=== PATIENT | female | born 1995 | race Caucasian/White ===

== ENCOUNTER 2016-09-30 19:07 | Emergency (ER) | payer OTHER ==
[2016-09-30] MEDS ORDERED: ONDANSETRON 4 MG TAB.RAPDIS PO ONE (19:16)
--- NOTE | 2016-09-30 19:16 | ER Document Report ---
ED Medical Screen (RME) - General Chief Complaint: Abdominal Pain Stated Complaint: ABDOMINAL PAIN Time seen by provider: 19:14 Mode of Arrival: Wheelchair Information source: Patient Notes: 21 yo female presents to ed for abdominal pain for 3 days. - HPI Onset: Other - 3days Onset/Duration: Gradual Quality of pain: Pressure, Sharp Severity: Moderate Pain Level: 4 Associated Symptoms: Abdominal pain, Nausea Exacerbated by: Movement Relieved by: Denies Similar symptoms previously: Yes Recently seen / treated by doctor: Yes - Related Data Smoking: Non-smoker Frequency of alcohol use: None Drug Abuse: None Allergies/Adverse Reactions: Penicillins Allergy (Verified 09/30/16 19:12) IV Contract Dye Allergy (Uncoded 09/30/16 19:12) Physical Exam - Vital signs Vitals: Temp Pulse Resp BP Pulse Ox 97.7 F 78 16 107/65 97 09/30/16 19:12 09/30/16 19:12 09/30/16 19:12 09/30/16 19:12 09/30/16 19:12 Course - Vital Signs Vital signs: Temp Pulse Resp BP Pulse Ox 97.7 F 78 16 107/65 97 09/30/16 19:12 09/30/16 19:12 09/30/16 19:12 09/30/16 19:12 09/30/16 19:12
[2016-09-30 20:01] LABS: ABSOLUTE BASOPHILS # (AUTO) 0.1 10^3/uL (0.0-0.2); ABSOLUTE EOSINOPHILS # (AUTO) 0.1 10^3/uL (0.0-0.6); ABSOLUTE LYMPHOCYTES (AUTO) 2.3 10^3/uL (0.5-4.7); ABSOLUTE MONOCYTES (AUTO) 0.5 10^3/uL (0.1-1.4); ABSOLUTE NEUT (AUTO) 4.6 10^3/uL (1.7-8.2); BASOPHILS % (AUTO) 0.8 % (0-2); EOSINOPHILS % (AUTO) 0.8 % (0-6); HEMATOCRIT 40.1 % (36.0-47.0); HEMOGLOBIN 13.7 g/dL (12.0-15.5); LYMPHOCYTES % (AUTO) 30.1 % (13-45); MEAN CORPUSCULAR HEMOGLOBIN 27.7 pg (27.0-33.4); MEAN CORPUSCULAR HGB CONC 34.2 g/dL (32.0-36.0); MEAN CORPUSCULAR VOLUME 81 fl (80-97); RED BLOOD COUNT 4.93 10^6/uL (3.72-5.28); RED CELL DISTRIBUTION WIDTH 13.9 % (11.5-14.0); SEGMENTED NEUTROPHILS % (AUTO) 61.3 % (42-78); WHITE BLOOD COUNT 7.5 10^3/uL (4.0-10.5)
[2016-09-30 20:06] LABS: APPEARANCE,URINE SLIGHTLY-CLOUDY; BILIRUBIN,URINE NEGATIVE (NEGATIVE); GLUCOSE, URINE NEGATIVE (NEGATIVE); KETONES,URINE NEGATIVE (NEGATIVE); LEUKOCYTE ESTERASE,URINE NEGATIVE (NEGATIVE); NITRITE,URINE NEGATIVE (NEGATIVE); PROTEIN,URINE NEGATIVE (NEGATIVE); URINE SPECIFIC GRAVITY 1.025; UROBILINOGEN,URINE NEGATIVE mg/dL (<2.0)
[2016-09-30 20:20] LABS: ALANINE AMINOTRANSFERASE 28 U/L (9-52); ALKALINE PHOSPHATASE 52 U/L (38-126); ANION GAP 13 (5-19); ASPARTATE AMINO TRANSFERASE 19 U/L (14-36); BILIRUBIN,TOTAL 0.8 mg/dL (0.2-1.3); BLOOD UREA NITROGEN 14 mg/dL (7-20); CALCIUM 9.8 mg/dL (8.4-10.2); CARBON DIOXIDE 27 mmol/L (22-30); CHLORIDE 104 mmol/L (98-107); CREATININE RESULT 0.81 mg/dL (0.52-1.25); GLUCOSE 94 mg/dL (75-110); LIPASE 94.5 U/L (23-300); POTASSIUM 3.8 mmol/L (3.6-5.0); SODIUM 143.8 mmol/L (137-145); TOTAL PROTEIN 7.6 g/dL (6.3-8.2)
--- NOTE | 2016-09-30 20:30 | ER Document Report ---
ED General - General Chief Complaint: Abdominal Pain Stated Complaint: ABDOMINAL PAIN Mode of Arrival: Ambulatory Information source: Patient Notes: Patient presents emergency department with complaints of abdominal pain for the past 3 days. Patient reports pain is severe in the left lower quad but has generalized pain to the right side. She reports diarrhea twice. Patient reports she was evaluated at [facility] this morning and all they did was give her tramadol. She has an appointment with her primary care provider on Monday. She reports the pain medication wasn't working so she came here. She denies fever vomiting. She reports history of appendectomy. She denies pain with void but reports some discomfort at the end of the stream. Denies vaginal discharge vaginal bleeding. TRAVEL OUTSIDE OF THE [place] IN LAST 30 DAYS: No - HPI Onset: Other - 3 days Onset/Duration: Persistent Quality of pain: Achy, Sharp Severity: Moderate Pain Level: 3 Associated symptoms: Diarrhea Exacerbated by: Denies Relieved by: Denies Similar symptoms previously: Yes Recently seen / treated by doctor: Yes - Related Data Allergies/Adverse Reactions: Penicillins Allergy (Verified 09/30/16 19:12) IV Contract Dye Allergy (Uncoded 09/30/16 19:12) Past Medical History - General Information source: Patient Last Menstrual Period: IUD - Social History Smoking Status: Never Smoker Chew tobacco use (# tins/day): No Frequency of alcohol use: None Drug Abuse: None Occupation: stay at home mom Lives with: Family Family History: Reviewed & Not Pertinent Patient has suicidal ideation: No Patient has homicidal ideation: No Psychiatric Medical History: Reports: Hx Depression Past Surgical History: Reports: Hx Appendectomy Review of Systems - Review of Systems Notes: Review HPI for review of systems., All other systems negative - Physical Exam - Vital signs Vitals: Temp Pulse Resp BP Pulse Ox 97.7 F 78 16 107/65 97 09/30/16 19:12 09/30/16 19:12 09/30/16 19:12 09/30/16 19:12 09/30/16 19:12 - Notes Notes: PHYSICAL EXAMINATION: GENERAL: Well-appearing and in no acute distress nontoxic looking HEAD: Atraumatic, normocephalic. EYES: Pupils equal round extraocular movements intact, sclera anicteric, conjunctiva are normal. ENT: nares patent, Moist mucous membranes. NECK: Normal range of motion, supple without lymphadenopathy LUNGS: CTAB and equal. No wheezes rales or rhonchi. HEART: Regular rate and rhythm without murmurs ABDOMEN: Soft, LLQ tenderness, generalize right side tenderness No guarding, no rebound BACK: Denies pain EXTREMITIES: Normal range of motion, no pitting edema. No cyanosis. NEUROLOGICAL: Cranial nerves grossly intact. Normal sensory/motor exams. PSYCH: Normal mood, normal affect. SKIN: Warm, Dry, normal turgor, no rashes or lesions noted Course - Re-evaluation Re-evalutation: 09/30/16 21:56 Received faxed record from [facility]. Patient had full workup this morning including a right upper quadrant abdominal ultrasound. Lab and US were within normal limits at [facility]. Labs and ultrasound done today here are normal. She looks good, asking for something to eat. Patient will be referred back to primary care provider to follow up on Monday. The patient presents with abdominal pain without signs of peritonitis or other life threatening or serious etiology. The patient appears stable for discharge and has been instructed to return immediately if the symptoms worsen in any way or in 8-12 hours if not improved for reevaluation. The patient has been instructed to return if the symptoms worsen or change in any way. - Vital Signs Vital signs: Temp Pulse Resp BP Pulse Ox 98.0 F 72 14 100/60 99 09/30/16 22:31 09/30/16 22:31 09/30/16 22:31 09/30/16 22:31 09/30/16 22:31 - Laboratory Result Diagrams: 09/30/16 19:46 09/30/16 19:46 - Diagnostic Test Radiology reviewed: Image reviewed, Reports reviewed Discharge - Discharge Clinical Impression: Abdominal pain Qualifiers: Abdominal location: generalized Qualified Code(s): R10.84 - Generalized abdominal pain Condition: Stable Disposition: HOME, SELF-CARE Instructions: Abdominal Pain ([facility]) Additional Instructions: *You have been evaluated for abdominal pain *Your labs and ultrasound were all normal *Take your medication for pain as prescribed *Follow up with a primary care provider on Monday as scheduled *Return to ED for worsening condition, changes, needs *Return to ED if not better in 24 hours
[2016-09-30 22:33] VITALS: BP 100/60
== END 2016-09-30 22:33 | disposition home or self-care (01) ==
LOC: ER 19:07
DX: R10.84 Generalized abdominal pain (principal); R19.7 Diarrhea, unspecified; Z90.49 Acquired absence of other specified parts of digestive tract; Z88.0 Allergy status to penicillin; Z91.041 Radiographic dye allergy status; Z97.5 Presence of (intrauterine) contraceptive device
CPT/HCPCS: 99284; 36415; 83690; 84703; 85025; 80053; 81001; 76830; 93976; S0119

== ENCOUNTER 2016-10-03 13:20 | Emergency (ER) | payer OTHER ==
--- NOTE | 2016-10-03 13:30 | ER Document Report ---
ED Medical Screen (RME) - General Stated Complaint: ABDOMINAL PAIN,NAUSEA Time seen by provider: 13:29 Mode of Arrival: Ambulatory Information source: Patient Notes: 21-year-old female returns to the emergency room with persistent left pelvic pain that radiates to the right side and up to her right upper quadrant. She had her appendix removed in May. She has no vaginal discharge with an odor. No urinary symptoms. She was seen in the emergency department recently and had diagnostic testing done. This pain has been intermittent for 9 months started after her child was born. No . Does have nausea today. TRAVEL OUTSIDE OF THE [place] IN LAST 30 DAYS: No - Related Data Allergies/Adverse Reactions: Penicillins Allergy (Verified 10/03/16 13:27) IV Contract Dye Allergy (Uncoded 10/03/16 13:27) Past Medical History Psychiatric Medical History: Reports: Hx Depression Past Surgical History: Reports: Hx Appendectomy - Immunizations Hx Diphtheria, Pertussis, Tetanus Vaccination: Yes Physical Exam - Vital signs Vitals: Temp Pulse Resp BP Pulse Ox 98.6 F 97 16 111/68 95 10/03/16 13:25 10/03/16 13:25 10/03/16 13:25 10/03/16 13:25 10/03/16 13:25 Course - Vital Signs Vital signs: Temp Pulse Resp BP Pulse Ox 98.6 F 97 16 111/68 95 10/03/16 13:25 10/03/16 13:25 10/03/16 13:25 10/03/16 13:25 10/03/16 13:25
[2016-10-03 14:34] LABS: ABSOLUTE LYMPHOCYTES (AUTO) 1.8 10^3/uL (0.5-4.7); ABSOLUTE MONOCYTES (AUTO) 0.4 10^3/uL (0.1-1.4); BASOPHILS % (AUTO) 0.5 % (0-2); EOSINOPHILS % (AUTO) 0.5 % (0-6); HEMATOCRIT 38.2 % (36.0-47.0); HEMOGLOBIN 13.2 g/dL (12.0-15.5); HGB HCT DIFFERENCE 1.4; LYMPHOCYTES % (AUTO) 24.7 % (13-45); MEAN CORPUSCULAR HEMOGLOBIN 27.6 pg (27.0-33.4); MEAN CORPUSCULAR HGB CONC 34.7 g/dL (32.0-36.0); MEAN CORPUSCULAR VOLUME 80 fl (80-97); MONOCYTES % (AUTO) 5.4 % (3-13); RED CELL DISTRIBUTION WIDTH 13.9 % (11.5-14.0); SEGMENTED NEUTROPHILS % (AUTO) 68.9 % (42-78); WHITE BLOOD COUNT 7.2 10^3/uL (4.0-10.5)
[2016-10-03 14:42] LABS: APPEARANCE,URINE SLIGHTLY-CLOUDY; BILIRUBIN,URINE NEGATIVE (NEGATIVE); GLUCOSE, URINE NEGATIVE (NEGATIVE); KETONES,URINE NEGATIVE (NEGATIVE); LEUKOCYTE ESTERASE,URINE NEGATIVE (NEGATIVE); NITRITE,URINE NEGATIVE (NEGATIVE); PROTEIN,URINE 30 mg/dL (NEGATIVE); URINE SPECIFIC GRAVITY 1.031; UROBILINOGEN,URINE NEGATIVE mg/dL (<2.0)
[2016-10-03 14:45] LABS: ALANINE AMINOTRANSFERASE 22 U/L (9-52); ALBUMIN 4.6 g/dL (3.5-5.0); ALKALINE PHOSPHATASE 54 U/L (38-126); ANION GAP 11 (5-19); ASPARTATE AMINO TRANSFERASE 19 U/L (14-36); BILIRUBIN,TOTAL 0.7 mg/dL (0.2-1.3); BLOOD UREA NITROGEN 18 mg/dL (7-20); CALCIUM 9.9 mg/dL (8.4-10.2); CARBON DIOXIDE 28 mmol/L (22-30); CHLORIDE 103 mmol/L (98-107); CREATININE RESULT 0.89 mg/dL (0.52-1.25); GLUCOSE 81 mg/dL (75-110); LIPASE 122.1 U/L (23-300); POTASSIUM 4.2 mmol/L (3.6-5.0); TOTAL PROTEIN 7.1 g/dL (6.3-8.2)
--- NOTE | 2016-10-03 15:58 | ER Document Report ---
ED General - General Chief Complaint: Abdominal Pain Stated Complaint: ABDOMINAL PAIN,NAUSEA Mode of Arrival: Ambulatory TRAVEL OUTSIDE OF THE [place] IN LAST 30 DAYS: No - HPI Patient complains to provider of: abdominal pain Notes: Patient states abdominal pain ongoing for months states is been intermittent states last time she had abdominal pain at this was back in May when she had her appendix taken out. Patient states pain has exacerbated over the last 5 days. Patient states pain started after having her first child. Patient states nausea vomiting diarrhea. Denies any sick contacts measures travel denies any antibiotics. Patient was recently seen here in ER and laboratory pelvic ultrasound performed which was otherwise negative. - Related Data Allergies/Adverse Reactions: Penicillins Allergy (Verified 10/03/16 13:27) IV Contract Dye Allergy (Uncoded 10/03/16 13:27) Past Medical History - General Information source: Patient - Social History Smoking Status: Never Smoker Chew tobacco use (# tins/day): No Frequency of alcohol use: Occasional Family History: Reviewed & Not Pertinent Patient has suicidal ideation: No Patient has homicidal ideation: No Psychiatric Medical History: Reports: Hx Bipolar Disorder, Hx Depression Past Surgical History: Reports: Hx Appendectomy - Immunizations Hx Diphtheria, Pertussis, Tetanus Vaccination: Yes Review of Systems - Review of Systems Constitutional: No symptoms reported EENT: No symptoms reported Cardiovascular: No symptoms reported Respiratory: No symptoms reported Gastrointestinal: Abdominal pain, Diarrhea, Nausea, Vomiting Genitourinary: No symptoms reported Female Genitourinary: No symptoms reported Musculoskeletal: No symptoms reported Skin: No symptoms reported Hematologic/Lymphatic: No symptoms reported Neurological/Psychological: No symptoms reported -: Yes All other systems reviewed and negative Physical Exam - Vital signs Vitals: Temp Pulse Resp BP Pulse Ox 98.6 F 97 16 111/68 95 10/03/16 13:25 10/03/16 13:25 10/03/16 13:25 10/03/16 13:25 10/03/16 13:25 Interpretation: Normal - General General appearance: Appears well, Alert - HEENT Head: Normocephalic, Atraumatic Eyes: Normal Pupils: PERRL - Respiratory Respiratory status: No respiratory distress Chest status: Nontender Breath sounds: Normal Chest palpation: Normal - Cardiovascular Rhythm: Regular Heart sounds: Normal auscultation Murmur: No - Abdominal Inspection: Normal Distension: No distension Bowel sounds: Normal Tenderness: Tender - Diffuse tenderness generalized no guarding or rebound. No : McBurney's point, Marinelli's sign, Guarding, Rebound Organomegaly: No organomegaly - Back Back: Normal, Nontender - Extremities General upper extremity: Normal inspection, Nontender, Normal color, Normal ROM , Normal temperature General lower extremity: Normal inspection, Nontender, Normal color, Normal ROM , Normal temperature, Normal weight bearing. No: Tamara's sign - Neurological Neuro grossly intact: Yes Cognition: Normal Orientation: AAOx4 Amira Coma Scale Eye Opening: Spontaneous [place] Coma Scale Verbal: Oriented [place] Coma Scale Motor: Obeys Commands [place] Coma Scale Total: 15 Speech: Normal Motor strength normal: LUE, RUE, LLE, RLE Sensory: Normal - Psychological Associated symptoms: Normal affect, Normal mood - Skin Skin Temperature: Warm Skin Moisture: Dry Skin Color: Normal Course - Re-evaluation Re-evalutation: 10/03/16 20:05 Patient's lab work is unremarkable. Diffuse mild tenderness on patient's abdominal examination upon reevaluation patient sitting up playing with her child. At this time abdominal examination reveals a surgically pathology or concern. Laboratory be normal no fevers more likely patient has possibly gastroenteritis or crepitations from her surgeries. Recommended patient follow- up with her primary care physician will start on Bentyl and nausea medication. Patient discharged home - Vital Signs Vital signs: Temp Pulse Resp BP Pulse Ox 98.5 F 88 14 102/66 95 10/03/16 16:14 10/03/16 16:14 10/03/16 16:14 10/03/16 16:14 10/03/16 16:14 - Laboratory Result Diagrams: 10/03/16 14:10 10/03/16 14:10 Laboratory results interpreted by me: 10/03/16 14:10 Urine Protein 30 H Discharge - Discharge Clinical Impression: Nausea vomiting and diarrhea Abdominal pain Qualifiers: Abdominal location: lower abdomen, unspecified Qualified Code(s): R10.30 - Lower abdominal pain, unspecified Condition: Good Disposition: HOME, SELF-CARE Instructions: Abdominal Pain ([facility]), Gastroenterology Additional Instructions: Follow-up with your primary care physician. At this time your labwork shows no critical etiology for your abdominal pain. Examination is also consistent with a nonsurgical pathology of your abdominal pain. Take medication as prescribed Prescriptions: Ondansetron [Zofran Odt 4 mg Tablet] 4 mg PO Q4HP PRN #30 tab.rapdis PRN Reason: Dicyclomine HCl [Bentyl 20 mg Tablet] 20 mg PO QID #20 tablet
[2016-10-03 16:39] VITALS: BP 102/66
== END 2016-10-03 16:15 | disposition home or self-care (01) ==
LOC: ER 13:20
DX: R11.2 Nausea with vomiting, unspecified (principal); R19.7 Diarrhea, unspecified; R10.30 Lower abdominal pain, unspecified; R10.2 Pelvic and perineal pain; R10.11 Right upper quadrant pain
CPT/HCPCS: 36415; 80053; 81001; 83690; 84703; 85025; 87086; 99284

== ENCOUNTER 2017-12-12 04:19 | Emergency (ER) | payer OTHER ==
[2017-12-12] MEDS ORDERED: ONDANSETRON HCL INJ/PF 4 MG/2 ML SDV IV ONE (04:48)
[2017-12-12] MEDS ORDERED: NORMAL SALINE 1000 ML 1,000 ML IV ONE (04:48)
[2017-12-12] MEDS ORDERED: MORPHINE SULFATE 10 MG/ML INJ IV ONE (05:11)
[2017-12-12] MEDS ORDERED: FAMOTIDINE INJ/PF 20 MG/2 ML SDV IV ONE (05:11)
--- NOTE | 2017-12-12 05:14 | ER Document Report ---
ED General - General Chief Complaint: Nausea/Vomiting/Diarrhea Stated Complaint: ABDOMINAL PAIN Time Seen by Provider: 12/12/17 05:02 Mode of Arrival: Ambulatory Information source: Patient Notes: 22-year-old female with a history of depression, GERD, chronic back pain, IBS, hiatal hernia, chronic abdominal pain presents with complaint of worsening abdominal pain that started 2 hours prior to arrival. Patient's pain is located in the epigastric and right upper quadrant. She describes it as a throbbing, burning, constant pain that radiates to her back. Patient states that she has had abdominal pain for several months but that it is greatly worsened today. Patient has had 7 episodes of vomiting in the last 2 hours. She has also had multiple episodes of watery diarrhea. She also states that she has had diarrhea for months. She denies any sick contacts, recent travel, recent antibiotic use. She denies any fever, chest pain, shortness of breath, dysuria. Last menstrual period was 2 weeks prior to this visit. TRAVEL OUTSIDE OF THE [place] IN LAST 30 DAYS: No - HPI Onset: Other - Chronic abdominal pain, chronic nausea, chronic diarrhea with reported worsening tonight. Onset/Duration: Gradual Quality of pain: Burning, Throbbing Severity: Mild Pain Level: 1 Associated symptoms: Diarrhea, Nausea, Vomiting. denies: Chest pain, Chills, Fever, Headache, Weakness Exacerbated by: Denies Relieved by: Denies Similar symptoms previously: Yes Recently seen / treated by doctor: No - Related Data Allergies/Adverse Reactions: Penicillins Allergy (Verified 10/03/16 13:27) IV Contract Dye Allergy (Uncoded 10/03/16 13:27) Past Medical History - General Information source: Patient - Social History Smoking Status: Former Smoker Chew tobacco use (# tins/day): No Frequency of alcohol use: None Drug Abuse: None Lives with: Spouse/Significant other Family History: Reviewed & Not Pertinent Patient has suicidal ideation: No Patient has homicidal ideation: No - Medical History Medical History: Other - IBS, GERD, hiatal hernia, chronic back pain. Renal/ Medical History: Denies: Hx Peritoneal Dialysis GI Medical History: Reports: Hx Gastroesophageal Reflux Disease Psychiatric Medical History: Reports: Hx Bipolar Disorder, Hx Depression Past Surgical History: Reports: Hx Appendectomy - Immunizations Hx Diphtheria, Pertussis, Tetanus Vaccination: Yes Review of Systems - Review of Systems Constitutional: denies: Chills, Fever EENT: No symptoms reported Cardiovascular: No symptoms reported Respiratory: No symptoms reported Gastrointestinal: Abdominal pain, Diarrhea, Nausea, Vomiting Genitourinary: denies: Dysuria, Hematuria Musculoskeletal: No symptoms reported Skin: No symptoms reported Hematologic/Lymphatic: No symptoms reported Neurological/Psychological: No symptoms reported Physical Exam - Vital signs Vitals: Temp Pulse Resp BP Pulse Ox 98.0 F 99 18 114/69 99 12/12/17 04:23 12/12/17 04:23 12/12/17 04:23 12/12/17 04:23 12/12/17 04:23 Interpretation: Normal. No: Hypotensive, Tachycardic, Febrile - General General appearance: Appears well, Alert In distress: Mild - HEENT Head: Normocephalic, Atraumatic Eyes: Normal Extraocular movements intact: Yes Pupils: PERRL Mucous membranes: Normal Pharynx: Normal Neck: Normal - Respiratory Respiratory status: No respiratory distress. No: Respiratory distress, Pursed lip breathing, Retractions Chest status: Nontender Breath sounds: Normal Chest palpation: Normal - Abdominal Inspection: Normal Distension: No distension Bowel sounds: Normal Tenderness: Tender, Marinelli's sign. No: Guarding, Rebound Organomegaly: No organomegaly - Back Back: Normal, Nontender - Extremities General upper extremity: Normal inspection, Nontender, Normal color, Normal ROM , Normal temperature. No: Edema General lower extremity: Normal inspection, Nontender, Normal color, Normal ROM , Normal temperature, Normal weight bearing. No: Edema, Tamara's sign - Neurological Neuro grossly intact: Yes Cognition: Normal Orientation: AAOx4 Amira Coma Scale Eye Opening: Spontaneous [place] Coma Scale Verbal: Oriented Amira Coma Scale Motor: Obeys Commands [place] Coma Scale Total: 15 Speech: Normal Motor strength normal: LUE, RUE, LLE, RLE Sensory: Normal Course - Re-evaluation Re-evalutation: 12/12/17 05:41 22-year-old female with a history of IBS, GERD, hiatal hernia, chronic abdominal pain and diarrhea presents with complaint of nausea, vomiting, diarrhea and abdominal pain that worsened 2 hours prior to arrival. Patient states that she has had 7 episodes of vomiting and diarrhea since 3 AM. Upon arrival vitals reviewed and within normal limits. Patient does not appear toxic or dehydrated. She does appear to be in mild pain. Previous medical records and nursing notes were reviewed. Patient received IV fluids, Zofran and Dilaudid during her ED course. Ultrasound of the right upper quadrant is pending. - Vital Signs Vital signs: Temp Pulse Resp BP Pulse Ox 98.0 F 99 18 114/69 99 12/12/17 04:23 12/12/17 04:23 12/12/17 04:23 12/12/17 04:23 12/12/17 04:23 - Laboratory Result Diagrams: 12/12/17 05:00 12/12/17 05:00 Laboratory results interpreted by me: 12/12/17 12/12/17 05:00 05:00 WBC 20.9 H RBC 5.49 H Seg Neuts % (Manual) 86 H Lymphocytes % (Manual) 9 L Abs Neuts (Manual) 18.0 H Chloride 109 H Carbon Dioxide 19 L Discharge - Discharge Clinical Impression: Epigastric abdominal pain Leukocytosis Qualifiers: Leukocytosis type: unspecified Qualified Code(s): D72.829 - Elevated white blood cell count, unspecified Nausea & vomiting Qualifiers: Vomiting type: unspecified Vomiting Intractability: non-intractable Qualified Code(s): R11.2 - Nausea with vomiting, unspecified Condition: Good Disposition: HOME, SELF-CARE Instructions: Viral Syndrome ([facility]), Vomiting ([facility]), Diarrhea, Nonspecific ([facility]) , Abdominal Pain ([facility]) Prescriptions: Hydrocodone/Acetaminophen [[place] 5-325 mg Tablet] 1 tab PO Q6H PRN #8 tablet PRN Reason: For Pain Scale 2-4 Ondansetron [Zofran Odt 4 mg Tablet] 1 - 2 tab PO Q4H PRN #15 tab.rapdis PRN Reason: For Nausea/Vomiting
[2017-12-12 05:17] LABS: HEMATOCRIT 43.7 % (36.0-47.0); HEMOGLOBIN 14.9 g/dL (12.0-15.5); MEAN CORPUSCULAR HEMOGLOBIN 27.1 pg (27.0-33.4); MEAN CORPUSCULAR VOLUME 80 fl (80-97); RED BLOOD COUNT 5.49 10^6/uL (3.72-5.28); RED CELL DISTRIBUTION WIDTH 13.6 % (11.5-14.0); WHITE BLOOD COUNT 20.9 10^3/uL (4.0-10.5)
[2017-12-12 05:29] LABS: BLOOD UREA NITROGEN 12 mg/dL (7-20); CALCIUM 10.2 mg/dL (8.4-10.2); GLUCOSE 100 mg/dL (75-110)
[2017-12-12 05:30] LABS: ALANINE AMINOTRANSFERASE 30 U/L (9-52); ALBUMIN 4.7 g/dL (3.5-5.0); ALKALINE PHOSPHATASE 55 U/L (38-126); ANION GAP 14 (5-19); ASPARTATE AMINO TRANSFERASE 19 U/L (14-36); BILIRUBIN,DIRECT 0.3 mg/dL (0.0-0.4); BILIRUBIN,TOTAL 0.4 mg/dL (0.2-1.3); CARBON DIOXIDE 19 mmol/L (22-30); CHLORIDE 109 mmol/L (98-107); LIPASE 173.9 U/L (23-300); TOTAL PROTEIN 7.9 g/dL (6.3-8.2)
[2017-12-12] MEDS ORDERED: HYDROMORPHONE HCL INJ/PF 2 MG/ML AMPULE IV ONE (05:37)
[2017-12-12 05:49] LABS: ABSOLUTE LYMPHOCYTES# (MANUAL) 1.9 10^3/uL (0.5-4.7); ABSOLUTE MONOCYTES # (MANUAL) 0.8 10^3/uL (0.1-1.4); BASOPHILS % (MANUAL) 0 % (0-2); EOSINOPHILS % (MANUAL) 1 % (0-6); LYMPHOCYTES % (MANUAL) 9 % (13-45); MONOCYTES % (MANUAL) 4 % (3-13); SEGMENTED NEUTROPHILS % (MAN) 86 % (42-78); TOTAL CELLS COUNTED 100
[2017-12-12 05:52] LABS: OVALOCYTES 1+; PLATELET CLUMPS PRESENT; PLATELET COMMENT ADEQUATE; PLATELET COUNT 401 10^3/uL (150-450); POIKILOCYTOSIS SLIGHT; TOXIC GRANULATION SLIGHT; TOXIC VACUOLATION PRESENT
--- NOTE | 2017-12-12 06:30 | RADIOLOGY REPORT (SQ) ---
EXAM DESCRIPTION: U/S ABDOMEN LIMITED W/O DOP CLINICAL HISTORY: ruq ab pain COMPARISON: None. TECHNIQUE: Real-time sonographic images of the right upper abdomen were obtained using a curved multihertz transducer. FINDINGS: Pancreas: The visualized portions of the pancreas are unremarkable. Vascular: The visualized portions of the aorta and IVC are unremarkable. Liver: The liver has normal contour and echogenicity. Hepatopedal flow in the portal vein. The common bile duct measures 0.3 cm. Gallbladder: The gallbladder has a normal appearance. No gallstones identified. No wall thickening or pericholecystic fluid. Right Kidney: The right kidney measures 10.0 cm in length. No hydronephrosis, solid renal mass, or shadowing calculi. IMPRESSION: 1. No acute abnormality of the right upper abdomen. Specifically, no gallstones identified.
[2017-12-12 06:55] VITALS: BP 109/69
== END 2017-12-12 06:45 | disposition home or self-care (01) ==
LOC: ER 04:19
DX: R10.13 Epigastric pain (principal); R10.11 Right upper quadrant pain; R11.2 Nausea with vomiting, unspecified; R19.7 Diarrhea, unspecified; D72.829 Elevated white blood cell count, unspecified; Z87.19 Personal history of other diseases of the digestive system; Z88.0 Allergy status to penicillin; Z91.041 Radiographic dye allergy status; Z87.891 Personal history of nicotine dependence; Z90.49 Acquired absence of other specified parts of digestive tract
CPT/HCPCS: 99284; 96361; 96374; 96375; 36415; 83690; 85025; 80053; 76705; J1170; J2405; J7030; S0028

== ENCOUNTER 2018-02-28 18:44 | Emergency (ER) | payer OTHER ==
[2018-02-28] MEDS ORDERED: DIPH/PERTUSS(ACELL)/TETANUS VAC/PF 0.5 ML SYR (>=10YO) IM ONE (19:33)
--- NOTE | 2018-02-28 19:42 | ER Document Report ---
ED Animal Bite - General Chief Complaint: Dog Bite Stated Complaint: POSSIBLE DOG BITE Time Seen by Provider: 02/28/18 19:33 Mode of Arrival: Ambulatory Information source: Patient TRAVEL OUTSIDE OF THE [place] IN LAST 30 DAYS: No - HPI Patient complains to provider of: Left wrist pain Severity of injury: Bitten Onset: Just prior to arrival Quality of pain: Achy, Sharp Pain Level: 3 Severity: Moderate Context of attack: Animals fighting Summary of what happened: Patient's Gregory Galarzapherd and her foster dog were fighting and she tried to break it up and got bitten the left wrist. Immunizations are up-to-date on both animals. Patient states that there was no true puncture of her skin, just pain and erythemic areas from the bite. Type of animal: Dog Appearance of animal: Appeared well Breed and color: Gregory Galarzapherd Animal's immunizations: UTD Notes: Patient has left wrist pain status post injury as noted above. The pain does not radiate. Patient states that her pain has improved since arrival. She has no associated numbness or tingling. No active bleeding. Unknown last tetanus. Denies any headache, fever, URI, sore throat, chest pain, palpitations, syncope, cough, shortness of breath, wheeze, dyspnea, abdominal pain, nausea/ vomiting/diarrhea, muscle paralysis/weakness, or rash. - Related Data Allergies/Adverse Reactions: Penicillins Allergy (Verified 02/28/18 18:46) IV Contract Dye Allergy (Uncoded 02/28/18 18:46) Past Medical History - Social History Smoking Status: Never Smoker Chew tobacco use (# tins/day): No Frequency of alcohol use: None Family History: Reviewed & Not Pertinent Patient has suicidal ideation: No Patient has homicidal ideation: No Renal/ Medical History: Denies: Hx Peritoneal Dialysis GI Medical History: Reports: Hx Gastroesophageal Reflux Disease Psychiatric Medical History: Reports: Hx Bipolar Disorder, Hx Depression Past Surgical History: Reports: Hx Appendectomy - Immunizations Hx Diphtheria, Pertussis, Tetanus Vaccination: Yes Review of Systems - Review of Systems -: Yes All other systems reviewed and negative Physical Exam - Vital signs Vitals: Temp Pulse Resp BP Pulse Ox 98.8 F 88 16 119/75 98 02/28/18 18:52 02/28/18 18:52 02/28/18 18:52 02/28/18 18:52 02/28/18 18:52 - Notes Notes: PHYSICAL EXAMINATION: GENERAL: Well-appearing, well-nourished and in no acute distress. LUNGS: Breath sounds clear to auscultation bilaterally and equal. No wheezes rales or rhonchi. HEART: Regular rate and rhythm without murmurs, rubs, gallops. Musculoskeletal: Lt wrist: There are abrasions noted with mild erythema. There is a single 2mm break in the skin, presumably from a tooth, w/o active bleeding to the dorsal wrist. FROM to passive/active. Strength 5+/5. N/V intact distal. + mild tenderness to the distal wrist. No scaphoid tenderness. Extremities: No cyanosis, clubbing, or edema b/l. Peripheral pulses 2+. Capillary refill less than 3 seconds. NEUROLOGICAL: Normal speech, normal gait. Normal sensory, motor exams PSYCH: Normal mood, normal affect. SKIN: Warm, Dry, normal turgor, no rashes or lesions noted. Course - Re-evaluation Re-evalutation: 02/28/18 19:39 XR and Tdap ordered 02/28/18 20:10 Patient is an afebrile, well-hydrated, 22-year-old female who presents to the ED with a dog bite/abrasion to the left wrist. Vitals are acceptable. PE is otherwise unremarkable for any neurovascular compromise, obvious tendon/ ligament rupture, obvious fracture/dislocation, septic joint, compartment syndrome. XR unremarkable for acute pathology. Wound was thoroughly irrigated and cleansed. Wound dressing was placed. Tetanus was given IM today. Patient has an allergy to penicillins. According to up-to-date we will cover her with Bactrim as well as clindamycin. No other labs or imaging warranted at this time based on H&P. Conservative measures otherwise for symptoms. Recheck with your PCM in 3-5 days. Consider consult orthopedic. Return to the ED with any worsening/concerning symptoms otherwise as reviewed discharge. Patient is in agreement. - Vital Signs Vital signs: Temp Pulse Resp BP Pulse Ox 98.8 F 88 16 119/75 98 02/28/18 18:52 02/28/18 18:52 02/28/18 18:52 02/28/18 18:52 02/28/18 18:52 Discharge - Discharge Clinical Impression: Dog bite Qualifiers: Encounter type: initial encounter Qualified Code(s): W54.0XXA - Bitten by dog, initial encounter Condition: Stable Disposition: HOME, SELF-CARE Instructions: Animal Bites ([facility]) Additional Instructions: Keep the skin clean Wash with soap and water Tylenol/ibuprofen if needed Triple antibiotic ointment daily Take medication as directed Monitor for any worsening symptoms Recheck with your PCM in 3-5 days Consider consult with Orthopedics if needed Return to the ED with any worsening symptoms and/or development of fever, headache, chest pain, palpitations, syncope, shortness of breath, trouble breathing, abdominal pain, n/v/d, abscess, purulent discharge, red streaks, worsening swelling, or other worsening symptoms that are concerning to you. Prescriptions: Clindamycin HCl [Cleocin 300 mg Capsule] 300 mg PO BID #14 capsule Sulfamethoxazole/Trimethoprim [Bactrim Ds Tablet] 1 each PO BID #14 tablet Referrals: [facility] [Provider Group] - Follow up as needed
--- NOTE | 2018-02-28 20:00 | RADIOLOGY REPORT (SQ) ---
EXAM DESCRIPTION: WRIST LEFT 3 VIEWS COMPLETED DATE/TIME: 02/28/2018 7:48 pm REASON FOR STUDY: dog bite COMPARISON: None. NUMBER OF VIEWS: Three views. TECHNIQUE: AP, lateral, and oblique radiographic images acquired of the left wrist. LIMITATIONS: None. FINDINGS: MINERALIZATION: Normal. BONES: No acute fracture or dislocation. No worrisome bone lesions. Normal alignment. SOFT TISSUES: Mild soft tissue swelling. No foreign body. OTHER: No other significant finding. IMPRESSION: No fracture. TECHNICAL DOCUMENTATION: JOB ID: [id number] [id number] [employer]- All Rights Reserved Reading location - IP/workstation name: [email or web address]
[2018-02-28 20:59] VITALS: BP 118/75
== END 2018-02-28 20:55 | disposition home or self-care (01) ==
LOC: ER 18:44
DX: S60.872A Other superficial bite of left wrist, initial encounter (principal); M25.532 Pain in left wrist; W54.0XXA Bitten by dog, initial encounter; Y92.009 Unspecified place in unspecified non-institutional (private) residence as the place of occurrence of the external cause; Z88.0 Allergy status to penicillin
CPT/HCPCS: 90471; 90715; 99283

== ENCOUNTER 2018-04-16 13:19 | Emergency (ER) | payer OTHER ==
[2018-04-16 14:19] LABS: AMORPHOUS SEDIMENT,URINE TRACE /HPF; APPEARANCE,URINE CLOUDY; BILIRUBIN,URINE NEGATIVE (NEGATIVE); COLOR,URINE YELLOW; GLUCOSE, URINE NEGATIVE (NEGATIVE); KETONES,URINE NEGATIVE (NEGATIVE); LEUKOCYTE ESTERASE,URINE TRACE (NEGATIVE); NITRITE,URINE NEGATIVE (NEGATIVE); PROTEIN,URINE NEGATIVE (NEGATIVE); URINE SPECIFIC GRAVITY 1.019
[2018-04-16 15:32] LABS: ABSOLUTE EOSINOPHILS # (AUTO) 0.1 10^3/uL (0.0-0.6); ABSOLUTE LYMPHOCYTES (AUTO) 1.5 10^3/uL (0.5-4.7); ABSOLUTE MONOCYTES (AUTO) 0.5 10^3/uL (0.1-1.4); ABSOLUTE NEUT (AUTO) 5.6 10^3/uL (1.7-8.2); BASOPHILS % (AUTO) 0.5 % (0-2); EOSINOPHILS % (AUTO) 0.8 % (0-6); HEMATOCRIT 42.2 % (36.0-47.0); HEMOGLOBIN 14.4 g/dL (12.0-15.5); LYMPHOCYTES % (AUTO) 19.3 % (13-45); MEAN CORPUSCULAR HGB CONC 34.1 g/dL (32.0-36.0); MEAN CORPUSCULAR VOLUME 82 fl (80-97); MONOCYTES % (AUTO) 6.9 % (3-13); PLATELET COUNT 297 10^3/uL (150-450); RED BLOOD COUNT 5.14 10^6/uL (3.72-5.28); RED CELL DISTRIBUTION WIDTH 14.3 % (11.5-14.0); SEGMENTED NEUTROPHILS % (AUTO) 72.5 % (42-78); TOTAL CELLS COUNTED % (AUTO) 100 %; WHITE BLOOD COUNT 7.7 10^3/uL (4.0-10.5)
[2018-04-16 16:02] LABS: ALANINE AMINOTRANSFERASE 31 U/L (9-52); ALBUMIN 4.4 g/dL (3.5-5.0); ALKALINE PHOSPHATASE 48 U/L (38-126); ANION GAP 11 (5-19); ASPARTATE AMINO TRANSFERASE 25 U/L (14-36); BILIRUBIN,DIRECT 0.2 mg/dL (0.0-0.4); BILIRUBIN,TOTAL 0.4 mg/dL (0.2-1.3); BLOOD UREA NITROGEN 15 mg/dL (7-20); CALCIUM 9.3 mg/dL (8.4-10.2); CARBON DIOXIDE 28 mmol/L (22-30); CHLORIDE 104 mmol/L (98-107); GLUCOSE 99 mg/dL (75-110); LIPASE 110.9 U/L (23-300); POTASSIUM 3.9 mmol/L (3.6-5.0); SODIUM 143.1 mmol/L (137-145); TOTAL PROTEIN 7.6 g/dL (6.3-8.2)
--- NOTE | 2018-04-16 17:00 | RADIOLOGY REPORT (SQ) ---
EXAM DESCRIPTION: U/S ABDOMEN LIMITED W/O DOP COMPLETED DATE/TIME: 04/16/2018 4:47 pm REASON FOR STUDY: ruq pain COMPARISON: 12/12/2017. TECHNIQUE: Dynamic and static grayscale images acquired of the abdomen and recorded on PACS. Additio nal selected color Doppler and spectral images recorded. LIMITATIONS: None. FINDINGS: PANCREAS: No masses. Visualized pancreatic duct normal caliber. LIVER: No masses. Echotexture normal. LIVER VASCULATURE: Normal directional flow of the main portal vein and hepatic veins. GALLBLADDER: No stones. Normal wall thickness. No pericholecystic fluid. ULTRASOUND-DETECTED LI'S SIGN: Negative. INTRAHEPATIC DUCTS AND COMMON DUCT: CBD and intrahepatic ducts normal caliber. No filling defects. INFERIOR VENA CAVA: Normal flow. AORTA: No aneurysm. RIGHT KIDNEY: Normal size. Normal echogenicity. No solid or suspicious masses. No hydronephrosis. No calcifications. PERITONEAL AND RIGHT PLEURAL SPACE: No ascites or effusions. OTHER: No other significant findings. IMPRESSION: NORMAL RIGHT UPPER QUADRANT ULTRASOUND. TECHNICAL DOCUMENTATION: JOB ID: [id number] [email or web address] All Rights Reserved Reading location - IP/workstation name: [email or web address]
[2018-04-16] MEDS ORDERED: DICYCLOMINE HCL 20 MG TABLET PO ONE (17:18)
--- NOTE | 2018-04-16 17:18 | ER Document Report ---
ED General - General Chief Complaint: Abdominal Pain Stated Complaint: ABDOMINAL PAIN/VOMITING Time Seen by Provider: 04/16/18 14:49 TRAVEL OUTSIDE OF THE [place] IN LAST 30 DAYS: No - HPI Patient complains to provider of: Abdominal pain vomiting Notes: Patient coming in for evaluation of abdominal pain since epigastric with vomiting. PatientStates has a history of appendectomy patient denies any fevers chills nausea vomiting diarrhea not associated with any food. Patient is already on omeprazole for underlying gastritis. - Related Data Allergies/Adverse Reactions: Penicillins Allergy (Verified 04/16/18 14:41) IV Contract Dye Allergy (Uncoded 04/16/18 14:41) Past Medical History - Social History Smoking Status: Never Smoker Chew tobacco use (# tins/day): No Frequency of alcohol use: Rare Drug Abuse: None Family History: Reviewed & Not Pertinent Patient has suicidal ideation: No Patient has homicidal ideation: No Renal/ Medical History: Denies: Hx Peritoneal Dialysis GI Medical History: Reports: Hx Gastroesophageal Reflux Disease Psychiatric Medical History: Reports: Hx Depression Comment Only: Hx Bipolar Disorder - borderline personality disorder Past Surgical History: Reports: Hx Appendectomy, Hx Tonsillectomy - Immunizations Hx Diphtheria, Pertussis, Tetanus Vaccination: Yes Review of Systems - Review of Systems Constitutional: No symptoms reported EENT: No symptoms reported Cardiovascular: No symptoms reported Respiratory: No symptoms reported Gastrointestinal: Abdominal pain, Nausea, Vomiting Genitourinary: No symptoms reported Female Genitourinary: No symptoms reported Musculoskeletal: No symptoms reported Skin: No symptoms reported Hematologic/Lymphatic: No symptoms reported Neurological/Psychological: No symptoms reported -: Yes All other systems reviewed and negative Physical Exam - Vital signs Vitals: Temp Pulse Resp BP Pulse Ox 97.9 F 97 18 112/68 99 04/16/18 13:32 04/16/18 13:32 04/16/18 13:32 04/16/18 13:32 04/16/18 13:32 Interpretation: Normal - General General appearance: Appears well, Alert - HEENT Head: Normocephalic, Atraumatic Eyes: Normal Pupils: PERRL - Respiratory Respiratory status: No respiratory distress Chest status: Nontender Breath sounds: Normal Chest palpation: Normal - Cardiovascular Rhythm: Regular Heart sounds: Normal auscultation Murmur: No - Abdominal Inspection: Normal Distension: No distension Bowel sounds: Normal Tenderness: Nontender Organomegaly: No organomegaly - Back Back: Normal, Nontender - Extremities General upper extremity: Normal inspection, Nontender, Normal color, Normal ROM , Normal temperature General lower extremity: Normal inspection, Nontender, Normal color, Normal ROM , Normal temperature, Normal weight bearing. No: Tamara's sign - Neurological Neuro grossly intact: Yes Cognition: Normal Orientation: AAOx4 [place] Coma Scale Eye Opening: Spontaneous [place] Coma Scale Verbal: Oriented [place] Coma Scale Motor: Obeys Commands [place] Coma Scale Total: 15 Speech: Normal Motor strength normal: LUE, RUE, LLE, RLE Sensory: Normal - Psychological Associated symptoms: Normal affect, Normal mood - Skin Skin Temperature: Warm Skin Moisture: Dry Skin Color: Normal Course - Re-evaluation Re-evalutation: 04/16/18 20:26 The patient presents with abdominal pain without signs of peritonitis or other life-threatening or serious etiology. The patient appears stable for discharge and has been instructed to return immediately if the symptoms worsen in any way , or in 8-12hr if not improved for re-evaluation. The patient has been instructed to return if the symptoms worsen or change in any way. - Vital Signs Vital signs: Temp Pulse Resp BP Pulse Ox 98.5 F 81 17 108/64 98 04/16/18 17:19 04/16/18 17:19 04/16/18 17:19 04/16/18 17:19 04/16/18 17:19 - Laboratory Result Diagrams: 04/16/18 15:16 04/16/18 15:16 Laboratory results interpreted by me: 04/16/18 04/16/18 13:33 15:16 RDW 14.3 H Urine Blood LARGE H Urine Urobilinogen 2.0 H Ur Leukocyte Esterase TRACE H Discharge - Discharge Clinical Impression: Abdominal pain Qualifiers: Abdominal location: unspecified location Qualified Code(s): R10.9 - Unspecified abdominal pain Condition: Good Disposition: HOME, SELF-CARE Instructions: Abdominal Pain ([facility]), Gastritis ([facility]) Additional Instructions: Your laboratory studies do not reveal any acute pathology for your abdominal pain. Your ultrasound is otherwise negative no signs of acute pathology with her gallbladder. Would recommend continue with your omeprazole previously prescribed. Would also start you on Carafate and we will give you medication called Bentyl for your abdominal pain. Zofran is for any nausea that she may have clear liquid diet for the next 12-24 hours and advance as tolerated follow- up with your GI specialist. Prescriptions: Dicyclomine HCl [Bentyl 20 mg Tablet] 20 mg PO QID #30 tablet Ondansetron [Zofran Odt] 4 mg PO Q6 PRN #30 tab.rapdis PRN Reason: For Nausea/Vomiting Sucralfate [Carafate 1 gm Tablet] 1 gm PO ACHS #120 tablet Referrals: MARIUM STEWART PA-C [Primary Care Provider] - Follow up in 3-5 days
[2018-04-16 17:23] VITALS: BP 108/64
[2018-04-16] MEDS: ONDANSETRON ODT 4 MG TAB (6 TAB/ER DISP) PO PRN ×2 (17:40→17:44)
== END 2018-04-16 17:20 | disposition home or self-care (01) ==
LOC: ER 13:19
DX: K29.70 Gastritis, unspecified, without bleeding (principal); R10.13 Epigastric pain; R11.2 Nausea with vomiting, unspecified; Z90.49 Acquired absence of other specified parts of digestive tract; Z87.19 Personal history of other diseases of the digestive system; Z88.0 Allergy status to penicillin; Z91.041 Radiographic dye allergy status
CPT/HCPCS: 99284; 36415; 83690; 85025; 81025; 80053; 81001; 76705; J3490

== ENCOUNTER 2018-12-26 15:13 | Emergency (ER) | payer OTHER ==
[2018-12-26] MEDS ORDERED: MECLIZINE HCL 25 MG TABLET PO ONE (15:28)
--- NOTE | 2018-12-26 15:28 | ER Document Report ---
ED Medical Screen (RME) - General Chief Complaint: Dizziness Stated Complaint: DIZZINESS Time Seen by Provider: 12/26/18 15:20 Primary Care Provider: MARIUM STEWART PA-C [Primary Care Provider] - Follow up as needed TRAVEL OUTSIDE OF THE [place] IN LAST 30 DAYS: No - HPI Notes: 12/26/18 15:26 Patient is a 23-year-old female with a history of chronic back pain who presents emergency department complaining of feeling dizzy that started this morning. Patient states that she is also on her menstrual cycle over the last few days and is not sure if this is related. She otherwise is feeling well and is eating and drinking without difficulty. She is urinating normally and having normal bowel movements. No recent illness. Patient states that she did have a spinal cord stimulator placed 13 days ago, but does not have it turned on until tomorrow. No new foods or medicines. Denies any headache, fever, head injury, neck pain, changes in vision/speech/mentation/hearing, URI, sore throat, chest pain, palpitations, syncope, cough, shortness of breath, wheeze, dyspnea, abdominal pain, nausea/vomiting/diarrhea, urinary retention, dysuria, hematuria, loss of control of bowel or bladder, numbness/tingling, saddle anesthesia, muscle paralysis/weakness, or rash. I have treated and performed a rapid initial assessment of this patient. A comprehensive ED assessment and evaluation of the patient, analysis of test results and completion of medical decision making process will be conducted by additional ED providers. PHYSICAL EXAMINATION: GENERAL: Well-appearing, well-nourished and in no acute distress. A&Ox4. Answers questions appropriately. HEAD: Atraumatic, normocephalic. Non-tender. EYES: Pupils equal round and reactive to light, extraocular movements intact, sclera anicteric, conjunctiva are normal. No nystagmus. ENT: EAC clear b/l. TM's intact b/l without erythema, fluid, or perforation. Nares patent and without discharge. oropharynx clear without exudates. No tonsilar hypertrophy or erythema. Moist mucous membranes. NECK: Normal range of motion, supple without lymphadenopathy. No rigidity/meningismus. No midline tenderness. LUNGS: Breath sounds clear to auscultation bilaterally and equal. No wheezes rales or rhonchi. HEART: Regular rate and rhythm without murmurs, rubs, gallops. ABDOMEN: Soft, nontender, nondistended abdomen. No guarding, no rebound. Normal bowel sounds present. No CVA tenderness bilaterally. Musculoskeletal: Ext's b/l: FROM to passive/active. Strength 5+/5. No deficits noted. No bony tenderness of extremities. Extremities: No cyanosis, clubbing, or edema b/l. Peripheral pulses 2+. Capillary refill less than 2 seconds. NEUROLOGICAL: GCS 15. Cranial nerves grossly intact. Normal speech, normal gait. Normal sensory, motor exams. PSYCH: Normal mood, normal affect. - Related Data Allergies/Adverse Reactions: Penicillins Allergy (Verified 12/26/18 15:14) IV Contract Dye Allergy (Uncoded 12/26/18 15:14) Past Medical History Renal/ Medical History: Denies: Hx Peritoneal Dialysis GI Medical History: Reports: Hx Gastroesophageal Reflux Disease Psychiatric Medical History: Reports: Hx Depression Comment Only: Hx Bipolar Disorder - borderline personality disorder Past Surgical History: Reports: Hx Appendectomy, Hx Orthopedic Surgery - spinal, Hx Tonsillectomy - Immunizations Hx Diphtheria, Pertussis, Tetanus Vaccination: Yes Physical Exam - Vital signs Vitals: Temp Pulse Resp BP Pulse Ox 98.4 F 108 H 18 112/65 98 12/26/18 15:17 12/26/18 15:17 12/26/18 15:17 12/26/18 15:17 12/26/18 15:17 Course - Vital Signs Vital signs: Temp Pulse Resp BP Pulse Ox 98.4 F 108 H 18 112/65 98 12/26/18 15:17 12/26/18 15:17 12/26/18 15:17 12/26/18 15:17 12/26/18 15:17 Doctor's Discharge - Discharge Referrals: MARIUM STEWART PA-C [Primary Care Provider] - Follow up as needed
[2018-12-26 15:58] LABS: ABSOLUTE BASOPHILS # (AUTO) 0.1 10^3/uL (0.0-0.2); ABSOLUTE EOSINOPHILS # (AUTO) 0.1 10^3/uL (0.0-0.6); ABSOLUTE LYMPHOCYTES (AUTO) 3.3 10^3/uL (0.5-4.7); ABSOLUTE MONOCYTES (AUTO) 0.6 10^3/uL (0.1-1.4); ABSOLUTE NEUT (AUTO) 7.6 10^3/uL (1.7-8.2); BASOPHILS % (AUTO) 0.8 % (0-2); EOSINOPHILS % (AUTO) 1.1 % (0-6); HEMOGLOBIN 12.9 g/dL (12.0-15.5); LYMPHOCYTES % (AUTO) 27.8 % (13-45); MEAN CORPUSCULAR HEMOGLOBIN 27.5 pg (27.0-33.4); MEAN CORPUSCULAR VOLUME 81 fl (80-97); MONOCYTES % (AUTO) 5.1 % (3-13); PLATELET COUNT 439 10^3/uL (150-450); RED CELL DISTRIBUTION WIDTH 13.5 % (11.5-14.0); SEGMENTED NEUTROPHILS % (AUTO) 65.2 % (42-78); TOTAL CELLS COUNTED % (AUTO) 100 %; WHITE BLOOD COUNT 11.7 10^3/uL (4.0-10.5)
[2018-12-26 16:13] LABS: APPEARANCE,URINE CLEAR; BILIRUBIN,URINE NEGATIVE (NEGATIVE); COLOR,URINE STRAW; GLUCOSE, URINE NEGATIVE (NEGATIVE); KETONES,URINE NEGATIVE (NEGATIVE); LEUKOCYTE ESTERASE,URINE NEGATIVE (NEGATIVE); NITRITE,URINE NEGATIVE (NEGATIVE); PROTEIN,URINE NEGATIVE (NEGATIVE); URINE SPECIFIC GRAVITY 1.006; UROBILINOGEN,URINE NEGATIVE mg/dL (<2.0)
[2018-12-26 16:45] LABS: ALANINE AMINOTRANSFERASE 21 U/L (9-52); ALBUMIN 4.4 g/dL (3.5-5.0); ALKALINE PHOSPHATASE 52 U/L (38-126); ANION GAP 11 (5-19); ASPARTATE AMINO TRANSFERASE 18 U/L (14-36); BILIRUBIN,DIRECT 0.4 mg/dL (0.0-0.4); BILIRUBIN,TOTAL 0.4 mg/dL (0.2-1.3); BLOOD UREA NITROGEN 10 mg/dL (7-20); CALCIUM 9.9 mg/dL (8.4-10.2); CARBON DIOXIDE 27 mmol/L (22-30); CHLORIDE 102 mmol/L (98-107); GLUCOSE 93 mg/dL (75-110); TOTAL PROTEIN 7.5 g/dL (6.3-8.2)
--- NOTE | 2018-12-26 17:43 | ER Document Report ---
ED General - General Chief Complaint: Dizziness Stated Complaint: DIZZINESS Time Seen by Provider: 12/26/18 15:20 Primary Care Provider: MARIUM STEWART PA-C [Primary Care Provider] - Follow up in 3-5 days Notes: Patient is a 23-year-old female who presents emergency department with a chief complaint of dizziness and fatigue that started this morning when she woke up. She states that her doctor was worried she may have symptoms of anemia, because she recently had a nerve stimulator placed in her back 13 days ago. She has a history of chronic back pain, anxiety, and GERD. She denies any numbness, tingling, loss of sensation, loss of movement, weakness, chest pain, shortness of breath, difficulty breathing, abdominal pain, or any other symptoms. TRAVEL OUTSIDE OF THE [place] IN LAST 30 DAYS: No - Related Data Allergies/Adverse Reactions: Penicillins Allergy (Verified 12/26/18 15:14) IV Contract Dye Allergy (Uncoded 12/26/18 15:14) Past Medical History - Social History Smoking Status: Former Smoker Family History: Reviewed & Not Pertinent Patient has suicidal ideation: No Patient has homicidal ideation: No Renal/ Medical History: Denies: Hx Peritoneal Dialysis GI Medical History: Reports: Hx Gastroesophageal Reflux Disease Psychiatric Medical History: Reports: Hx Depression Comment Only: Hx Bipolar Disorder - borderline personality disorder Past Surgical History: Reports: Hx Appendectomy, Hx Orthopedic Surgery - spinal, Hx Tonsillectomy - Immunizations Hx Diphtheria, Pertussis, Tetanus Vaccination: Yes Review of Systems - Review of Systems Notes: REVIEW OF SYSTEMS: CONSTITUTIONAL : Denies recent illness. Denies recent unintentional weight loss. Denies fever, chills, or sweats. EENT: Denies eye, ear, throat, or mouth pain, discharge, or symptoms. Denies nasal or sinus congestion. CARDIOVASCULAR: Denies chest pain. RESPIRATORY: Denies shortness of breath, cough, congestion, difficulty breathing, or wheezing. GASTROINTESTINAL: Denies nausea, vomiting, and diarrhea. Denies abdominal pain. Denies constipation. GENITOURINARY: Denies difficulty urinating, burning, blood in urine, urgency or frequency. MUSCULOSKELETAL: Denies neck and back pain. Denies joint pain or swelling. SKIN: Denies rash, itchiness, or lesions HEMATOLOGIC : Denies easy bruising or bleeding. LYMPHATIC: Denies swollen, painful, enlarged glands. NEUROLOGICAL: See HPI PSYCHIATRIC: Denies stress, anxiety, alteration in sleep patterns, or depression. All other systems reviewed and negative. Physical Exam - Vital signs Vitals: Temp Pulse Resp BP Pulse Ox 98.4 F 108 H 18 112/65 98 12/26/18 15:17 12/26/18 15:17 12/26/18 15:17 12/26/18 15:17 12/26/18 15:17 - Notes Notes: PHYSICAL EXAMINATION: GENERAL: Appears well, healthy, well-nourished, no acute distress. HEAD: Normocephalic, atraumatic. EYES: PERRL, conjunctiva normal, all extraocular movements intact, sclera nonicteric ENT: Moist mucous membranes. Erythema and edema noted to the nasal mucosa. Rhinorrhea noted. NECK: Supple, no noticeable swelling, redness, rash. Normal range of motion. LUNGS: Equal breath sounds bilaterally and clear to auscultation. No wheezes rales or rhonchi. CARDIOVASCULAR: S1-S2, regular rate, regular rhythm. Radial pulses 2+, normal. ABDOMEN: Normoactive bowel sounds. Soft, nontender, no guarding, no rebound tenderness, and no masses palpated. EXTREMITIES: Normal strength and range of motion, no pitting or edema. No cyanosis. NEUROLOGICAL: Moves all extremities upon command. Strength 5/5 in all extremities. PSYCH: Normal mood, normal affect. SKIN: Warm, dry. No rash, lesions, ulcerations noted. Normal skin turgor. Surgical incision noted to mid back and right lower back. Healing well. Course - Re-evaluation Re-evalutation: 12/26/18 17:44 Patient states that she does feel better after receiving meclizine in triage. Patient's hematology shows a leukocytosis of 11,700, but I suspect the patient has an elevated white blood cell count only due to the fact that she has had recent surgery. Her surgical incisions look normal and are healing very well. Her chemistries are unremarkable. Her urinalysis is normal. Her physical exam shows that she has erythema and edema noted to her nasal mucosa. I suspect that she is having some dizziness due to allergies. I do not suspect she has any intracranial abnormalities or an acute stroke. She will be started on Flonase and Claritin at home. She does have some Claritin at home, therefore she will not be prescribed this medication. I do not suspect an intracranial bleed, or any life-threatening etiology at this time. Verbal discharge instructions were given to the patient. They verbalized understanding. They are stable for discharge. - Vital Signs Vital signs: Temp Pulse Resp BP Pulse Ox 98.1 F 88 16 113/64 100 12/26/18 17:58 12/26/18 17:58 12/26/18 17:58 12/26/18 17:58 12/26/18 17:58 - Laboratory Result Diagrams: 12/26/18 15:43 12/26/18 15:43 Laboratory results interpreted by me: 12/26/18 12/26/18 15:43 15:43 WBC 11.7 H Urine Blood SMALL H Discharge - Discharge Clinical Impression: Dizziness Fatigue Qualifiers: Fatigue type: other Qualified Code(s): R53.83 - Other fatigue Condition: Stable Disposition: HOME, SELF-CARE Instructions: Dizziness ([facility]), Meclizine ([facility]) Additional Instructions: Your seen today in the emergency department for dizziness and fatigue. Your labs are normal. Allergies may be a cause of your dizziness and fatigue. Please take Zyrtec tech or Claritin daily as needed. You have also been prescribed Flonase, medication to help with your allergies. Use as directed. Please follow-up with your primary care provider in regards to this visit. If you develop difficulty breathing, shortness of breath, chest pain, or any symptoms that are worrisome to you, please return to the emergency department. Prescriptions: Fluticasone Propionate [Flonase Nasal Muse 50 Mcg/Muse 16 gm] 2 sprays NASL Q12 #1 inhaler Meclizine HCl [Antivert 25 mg Tablet] 25 mg PO TID PRN #10 tablet PRN Reason: Referrals: MARIUM STEWART PA-C [Primary Care Provider] - Follow up in 3-5 days
[2018-12-26 18:02] VITALS: BP 113/64
--- NOTE | 2018-12-26 18:51 | EKG REPORT ---
SEVERITY:- NORMAL ECG - SINUS RHYTHM : Confirmed by: Javad Wheeler MD 26-Dec-2018 18:50:21
== END 2018-12-26 17:58 | disposition home or self-care (01) ==
LOC: ER 15:13
DX: R42 Dizziness and giddiness (principal); R53.83 Other fatigue; R09.89 Other specified symptoms and signs involving the circulatory and respiratory systems; M54.9 Dorsalgia, unspecified; G89.29 Other chronic pain; Z97.8 Presence of other specified devices; Z88.0 Allergy status to penicillin; Z91.041 Radiographic dye allergy status; Z87.891 Personal history of nicotine dependence; D72.829 Elevated white blood cell count, unspecified
CPT/HCPCS: 36415; 80053; 81001; 81025; 85025; 87086; 87088; 87186; 93005; 93010; 99284

== ENCOUNTER 2019-04-19 15:47 | Emergency (ER) | payer OTHER ==
[2019-04-19] MEDS ORDERED: NORMAL SALINE 1000 ML 1,000 ML IV ONE (17:52)
--- NOTE | 2019-04-19 17:52 | ER Document Report ---
ED Medical Screen (RME) - General Chief Complaint: Flank Pain Stated Complaint: KIDNEY PAIN Time Seen by Provider: 04/19/19 16:13 Primary Care Provider: MARIUM STEWART PA-C [Primary Care Provider] - Follow up as needed Notes: Patient is a 23-year-old female presents to the emergency department for bilateral flank pain. Patient states approximately 2 weeks ago she presents to urgent care for dysuria. States she was initially placed on Bactrim which her primary care provider told her her infection was then resistant to. States she was then placed on Macrobid. States yesterday she presented back to her primary care provider who started her on ciprofloxacin. Patient states she is got bilateral flank pain which initially started yesterday and her primary care provider told her to come to the emergency department but she refused. Patient states her bilateral flank pain has increased, she continues with nausea, vomiting. Patient admits to subjective fevers. GENERAL: Alert, interacts well. No acute distress. BACK: no cervical, thoracic, lumbar midline tenderness. No saddle anesthesia, normal distal neurovascular exam. Bilateral CVA tenderness noted I have greeted and performed a rapid initial assessment of this patient. A comprehensive ED assessment and evaluation of the patient, analysis of test results and completion of the medical decision making process will be conducted by additional ED providers. I have specifically instructed the patient or family members with the patient to immediately return to any nursing staff should anything change in the patient's condition or with their chief complaint. This medical record was dictated with voice recognizing software. There may be grammatical, syntax errors that are unintended. TRAVEL OUTSIDE OF THE [place] IN LAST 30 DAYS: No - Related Data Allergies/Adverse Reactions: Penicillins Allergy (Verified 04/19/19 16:02) IV Contract Dye Allergy (Uncoded 04/19/19 16:02) Past Medical History Renal/ Medical History: Denies: Hx Peritoneal Dialysis GI Medical History: Reports: Hx Gastroesophageal Reflux Disease Psychiatric Medical History: Reports: Hx Depression Comment Only: Hx Bipolar Disorder - borderline personality disorder Past Surgical History: Reports: Hx Appendectomy, Hx Orthopedic Surgery - spinal, Hx Tonsillectomy - Immunizations Hx Diphtheria, Pertussis, Tetanus Vaccination: Yes Physical Exam - Vital signs Vitals: Temp Pulse Resp BP Pulse Ox 98.2 F 95 16 118/63 97 04/19/19 16:13 04/19/19 16:13 04/19/19 16:13 04/19/19 16:13 04/19/19 16:13 Course - Vital Signs Vital signs: Temp Pulse Resp BP Pulse Ox 98.2 F 95 16 118/63 97 04/19/19 16:13 04/19/19 16:13 04/19/19 16:13 04/19/19 16:13 04/19/19 16:13 Doctor's Discharge - Discharge Referrals: MARIUM STEWART PA-C [Primary Care Provider] - Follow up as needed
--- NOTE | 2019-04-19 18:25 | RADIOLOGY REPORT (SQ) ---
EXAM DESCRIPTION: U/S RETROPERITON (RENAL/AORTA) COMPLETED DATE/TIME: 04/19/2019 6:16 pm REASON FOR STUDY: BL flank pain COMPARISON: None. TECHNIQUE: Dynamic and static grayscale images acquired of the kidneys and bladder and recorded on P ACS. Additional selected color Doppler and spectral images recorded. LIMITATIONS: None. FINDINGS: RIGHT KIDNEY: Normal size. Normal echogenicity. No solid or suspicious masses. No hydronep hrosis. No calcifications. LEFT KIDNEY: Normal size. Normal echogenicity. No solid or suspicious masses. No hydronephrosis. No calcifications. BLADDER: No masses. OTHER FINDINGS: No other significant finding. IMPRESSION: NORMAL RENAL AND BLADDER ULTRASOUND. TECHNICAL DOCUMENTATION: JOB ID: [id number] [facility]- All Rights Reserved Reading location - IP/workstation name: [email or web address]
[2019-04-19] MEDS ORDERED: ONDANSETRON HCL INJ/PF 4 MG/2 ML SDV IV ONE (18:39)
[2019-04-19] MEDS ORDERED: FENTANYL CITRATE INJ/PF 100 MCG/2 ML AMPUL IV ONE (18:40)
--- NOTE | 2019-04-19 18:41 | ER Document Report ---
ED General - General Chief Complaint: Flank Pain Stated Complaint: KIDNEY PAIN Time Seen by Provider: 04/19/19 16:13 Primary Care Provider: MARIUM STEWART PA-C [Primary Care Provider] - Follow up as needed TRAVEL OUTSIDE OF THE [place] IN LAST 30 DAYS: No - HPI Notes: 23-year-old female to the emergency department with complaints of left flank pain that has been going on for several days. She states that she has been suffering from a urinary tract infection for over 3 weeks. She states that initially she just tried to tough it out and see if her symptoms would pass. But after having suprapubic discomfort and dysuria for over a week she went and saw her primary care physician. She states that she was put on an antibiotic initially but then was called to fill the antibiotic was not a good fit and started on nitrofurantoin. She states that she completed that medicine but then developed flank pain over the past week. She went and saw her primary care physician yesterday who changed her over to Cipro but also encouraged her to come to the emergency department to be evaluated for a kidney infection. Patient has never had a kidney infection before. She denies any fevers. She does admit to nausea. She denies any vomiting. She denies chills. She denies blood in her urine. She denies vaginal discharge. She denies headache, chest pain, shortness of breath. She denies chance of . - Related Data Allergies/Adverse Reactions: Penicillins Allergy (Verified 04/19/19 16:02) IV Contract Dye Allergy (Uncoded 04/19/19 16:02) Past Medical History - General Information source: Patient - Social History Smoking Status: Never Smoker Chew tobacco use (# tins/day): No Frequency of alcohol use: None Drug Abuse: None Family History: Reviewed & Not Pertinent Patient has suicidal ideation: No Patient has homicidal ideation: No Renal/ Medical History: Denies: Hx Peritoneal Dialysis GI Medical History: Reports: Hx Gastroesophageal Reflux Disease Psychiatric Medical History: Reports: Hx Depression Comment Only: Hx Bipolar Disorder - borderline personality disorder Past Surgical History: Reports: Hx Appendectomy, Hx Orthopedic Surgery - spinal, Hx Tonsillectomy - Immunizations Hx Diphtheria, Pertussis, Tetanus Vaccination: Yes Review of Systems - Review of Systems Constitutional: Malaise. denies: Chills, Fever EENT: No symptoms reported Cardiovascular: denies: Chest pain, Syncope, Dizziness, Lightheaded Respiratory: denies: Cough, Short of breath Gastrointestinal: Abdominal pain, Nausea. denies: Diarrhea, Vomiting Genitourinary: Dysuria, Frequency, Flank pain. denies: Incontinence Female Genitourinary: No symptoms reported Musculoskeletal: No symptoms reported Skin: No symptoms reported Hematologic/Lymphatic: No symptoms reported Neurological/Psychological: No symptoms reported -: Yes All other systems reviewed and negative Physical Exam - Vital signs Vitals: Temp Pulse Resp BP Pulse Ox 98.2 F 95 16 118/63 97 04/19/19 16:13 04/19/19 16:13 04/19/19 16:13 04/19/19 16:13 04/19/19 16:13 Interpretation: Normal - General General appearance: Appears well, Alert - HEENT Head: Normocephalic, Atraumatic Eyes: Normal Pupils: PERRL - Respiratory Respiratory status: No respiratory distress Chest status: Nontender Breath sounds: Normal Chest palpation: Normal - Cardiovascular Rhythm: Regular Heart sounds: Normal auscultation Murmur: No - Abdominal Inspection: Normal Distension: No distension Bowel sounds: Normal Tenderness: Nontender Notes: + TTP OVER THE LEFT FLANK WITH + CVA TENDERNESS. + TTP OVER THE LUQ. NEGATIVE TTP OVER THE RLQ, RUQ. NEGATIVE LI'S AND MCBURNEY'S. - Back Back: CVA tenderness - Neurological Neuro grossly intact: Yes Cognition: Normal Orientation: AAOx4 [place] Coma Scale Eye Opening: Spontaneous [place] Coma Scale Verbal: Oriented [place] Coma Scale Motor: Obeys Commands [place] Coma Scale Total: 15 Speech: Normal Motor strength normal: LUE, RUE, LLE, RLE Sensory: Normal - Psychological Associated symptoms: Normal affect, Normal mood - Skin Skin Temperature: Warm Skin Moisture: Dry Skin Color: Normal Course - Re-evaluation Re-evalutation: 04/19/19 21:39 Laboratory 04/19/19 04/19/19 04/19/19 16:14 18:23 18:23 WBC 9.3 RBC 4.84 Hgb 12.9 Hct 38.9 MCV 80 MCH 26.6 L MCHC 33.1 RDW 15.3 H Plt Count 411 Seg Neutrophils % 61.6 Lymphocytes % 30.7 Monocytes % 6.2 Eosinophils % 0.8 Basophils % 0.7 Absolute Neutrophils 5.8 Absolute Lymphocytes 2.9 Absolute Monocytes 0.6 Absolute Eosinophils 0.1 Absolute Basophils 0.1 Sodium 141.6 Potassium 4.2 Chloride 102 Carbon Dioxide 29 Anion Gap 11 BUN 12 Creatinine 0.71 Est GFR ( Amer) > 60 Est GFR (Non-Af Amer) > 60 Glucose 82 Calcium 10.0 Total Bilirubin 0.4 Direct Bilirubin 0.1 Neonat Total Bilirubin Not Reportable Neonat Direct Bilirubin Not Reportable Neonat Indirect Bili Not Reportable AST 65 H ALT 130 H Alkaline Phosphatase 57 Total Protein 7.9 Albumin 4.9 Lipase 132.4 Urine Color LOU Urine Appearance SLIGHTLY-CLOUDY Urine pH 5.0 Ur Specific [place] 1.021 Urine Protein NEGATIVE Urine Glucose (UA) NEGATIVE Urine Ketones NEGATIVE Urine Blood NEGATIVE Urine Nitrite POSITIVE H Urine Bilirubin NEGATIVE Urine Urobilinogen 2.0 H Ur Leukocyte Esterase SMALL H Urine WBC (Auto) 5 Urine RBC (Auto) 2 Urine Bacteria (Auto) TRACE Squamous Epi Cells Auto 9 Calcium Oxalate Cr Auto FEW Urine Mucus (Auto) RARE Urine Ascorbic Acid NEGATIVE Urine HCG, Qual NEGATIVE Renal Ultrasound 04/19/19 17:52 IMPRESSION: NORMAL RENAL AND BLADDER ULTRASOUND. IMPRESSION: PYELONEPHRITIS. WILL HAVE PATIENT CONTINUE HER CIPRO AT HOME, BUT DID GIVE A DOSE OF IV ABX HERE. SHE HAS NO LEUKOCYTOSIS, NO FEVER, STABLE RENAL FUNCTION, NOT HYPOTENSIVE OR TACHYCARDIC. SHE FEELS MUCH BETTER AFTER PAIN CONTROL AND IS TOLERATING PO FLUIDS. WILL DISCHARGE HOME, HAVE HER FOLLOW WITH PCP. ENCOURAGED HER TO RETURN IF INTRACTABLE VOMITING, FEVERS, INTOLERABLE PAIN DESPITE PAIN MEDICINE, OR ANY OTHER CONCERNS. PATIENT AGREES WITH THE PLAN. - Vital Signs Vital signs: Temp Pulse Resp BP Pulse Ox 98.2 F 95 16 118/63 97 04/19/19 16:13 04/19/19 16:13 04/19/19 16:13 04/19/19 16:13 04/19/19 16:13 - Laboratory Result Diagrams: 04/19/19 18:23 04/19/19 18:23 Laboratory results interpreted by me: 04/19/19 04/19/19 04/19/19 16:14 18:23 18:23 MCH 26.6 L RDW 15.3 H AST 65 H ALT 130 H Urine Nitrite POSITIVE H Urine Urobilinogen 2.0 H Ur Leukocyte Esterase SMALL H - Diagnostic Test Radiology reviewed: Image reviewed, Reports reviewed Discharge - Discharge Clinical Impression: Pyelonephritis, Left flank pain Condition: Stable Disposition: HOME, SELF-CARE Instructions: Pyelonephritis ([facility]) Additional Instructions: CONTINUE YOUR CIPRO ANTIBIOTICS. PUSH FLUIDS. TAKE PAIN MEDS AND ANTIEMETICS. RETURN IMMEDIATELY IF INTOLERABLE PAIN, INTRACTABLE VOMITING, FEVERS, PASSING OUT, OR ANY OTHER CONCERNS. SEE YOUR PRIMARY CARE ON MONDAY WITHOUT FAIL. Prescriptions: Ondansetron [Zofran Odt 4 mg Tablet] 1 - 2 tab PO Q4H PRN #15 tab.rapdis PRN Reason: For Nausea/Vomiting Oxycodone HCl/Acetaminophen [Percocet 5-325 mg Tablet] 1 tab PO Q4H PRN #15 tablet PRN Reason: Referrals: MARIUM STEWART PA-C [Primary Care Provider] - Follow up as needed
[2019-04-19 18:42] LABS: APPEARANCE,URINE SLIGHTLY-CLOUDY; BILIRUBIN,URINE NEGATIVE (NEGATIVE); CALCIUM OXALATE CRYSTALS,URINE FEW /HPF; COLOR,URINE AMBER; GLUCOSE, URINE NEGATIVE (NEGATIVE); KETONES,URINE NEGATIVE (NEGATIVE); LEUKOCYTE ESTERASE,URINE SMALL (NEGATIVE); NITRITE,URINE POSITIVE (NEGATIVE); PROTEIN,URINE NEGATIVE (NEGATIVE); URINE SPECIFIC GRAVITY 1.021
[2019-04-19 18:51] LABS: ABSOLUTE BASOPHILS # (AUTO) 0.1 10^3/uL (0.0-0.2); ABSOLUTE EOSINOPHILS # (AUTO) 0.1 10^3/uL (0.0-0.6); ABSOLUTE LYMPHOCYTES (AUTO) 2.9 10^3/uL (0.5-4.7); ABSOLUTE MONOCYTES (AUTO) 0.6 10^3/uL (0.1-1.4); ABSOLUTE NEUT (AUTO) 5.8 10^3/uL (1.7-8.2); BASOPHILS % (AUTO) 0.7 % (0-2); EOSINOPHILS % (AUTO) 0.8 % (0-6); HEMATOCRIT 38.9 % (36.0-47.0); HEMOGLOBIN 12.9 g/dL (12.0-15.5); LYMPHOCYTES % (AUTO) 30.7 % (13-45); MEAN CORPUSCULAR HEMOGLOBIN 26.6 pg (27.0-33.4); MEAN CORPUSCULAR HGB CONC 33.1 g/dL (32.0-36.0); MEAN CORPUSCULAR VOLUME 80 fl (80-97); MONOCYTES % (AUTO) 6.2 % (3-13); PLATELET COUNT 411 10^3/uL (150-450); RED BLOOD COUNT 4.84 10^6/uL (3.72-5.28); RED CELL DISTRIBUTION WIDTH 15.3 % (11.5-14.0); SEGMENTED NEUTROPHILS % (AUTO) 61.6 % (42-78); TOTAL CELLS COUNTED % (AUTO) 100 %; WHITE BLOOD COUNT 9.3 10^3/uL (4.0-10.5)
[2019-04-19 19:06] LABS: ALANINE AMINOTRANSFERASE 130 U/L (9-52); ALBUMIN 4.9 g/dL (3.5-5.0); ALKALINE PHOSPHATASE 57 U/L (38-126); ANION GAP 11 (5-19); ASPARTATE AMINO TRANSFERASE 65 U/L (14-36); BILIRUBIN,DIRECT 0.1 mg/dL (0.0-0.4); BILIRUBIN,TOTAL 0.4 mg/dL (0.2-1.3); BLOOD UREA NITROGEN 12 mg/dL (7-20); CARBON DIOXIDE 29 mmol/L (22-30); CHLORIDE 102 mmol/L (98-107); GLUCOSE 82 mg/dL (75-110); POTASSIUM 4.2 mmol/L (3.6-5.0); TOTAL PROTEIN 7.9 g/dL (6.3-8.2)
[2019-04-19] MEDS ORDERED: CEFTRIAXONE 1 GM/D5W RTU 1 GM/50 ML RTUPB IV ONE (19:48)
[2019-04-19] MEDS ORDERED: HYDROMORPHONE HCL INJ/PF 2 MG/ML AMPULE IV ONE (19:53)
[2019-04-19 21:44] VITALS: BP 117/65
== END 2019-04-19 21:44 | disposition home or self-care (01) ==
LOC: ER 15:47
DX: N12 Tubulo-interstitial nephritis, not specified as acute or chronic (principal); R10.9 Unspecified abdominal pain; Z90.49 Acquired absence of other specified parts of digestive tract; Z16.39 Resistance to other specified antimicrobial drug; Z87.19 Personal history of other diseases of the digestive system
CPT/HCPCS: 99284; 96361; 96375; 96365; 36415; 87040; 87086; 83690; 85025; 81025; 80053; 81001; 76770; J3010; J1170; J2405; J7030; J0696

== ENCOUNTER 2019-04-30 11:42 | Emergency (ER) | payer OTHER ==
--- NOTE | 2019-04-30 12:34 | ER Document Report ---
ED Medical Screen (RME) - General Chief Complaint: Urinary Problem Stated Complaint: URINARY PROBLEMS Time Seen by Provider: 04/30/19 12:29 Primary Care Provider: MARIUM STEWART PA-C [Primary Care Provider] - Follow up as needed Mode of Arrival: Ambulatory Information source: Patient Notes: Patient is a 23-year-old female presented to the emergency department with d ysuria and bilateral flank pain. Patient reports symptoms have been going on for several weeks and she has associated nausea, vomiting and chills. She states that she is currently finishing her third antibiotic. She reports the first 2 antibiotics did not work as her doctor told her that her urine was resistant to them. She is unsure what these antibiotics were but she does know that currently she is taking Cipro. She has been taking Cipro for approximately 12 days now. Exam: Bilateral CVA tenderness. I have greeted and performed a rapid initial assessment of this patient. A comprehensive ED assessment and evaluation of the patient, analysis of test results and completion of the medical decision making process will be conducted by additional ED providers. I have specifically instructed the patient or family members with the patient to immediately return to any nursing staff should anything change in the patient's condition or with their chief complaint. This medical record was dictated with voice recognizing software. There may be grammatical, syntax errors that are unintended. TRAVEL OUTSIDE OF THE [place] IN LAST 30 DAYS: No - Related Data Allergies/Adverse Reactions: Penicillins Allergy (Verified 04/30/19 11:46) IV Contract Dye Allergy (Uncoded 04/30/19 11:46) Past Medical History Renal/ Medical History: Denies: Hx Peritoneal Dialysis GI Medical History: Reports: Hx Gastroesophageal Reflux Disease Psychiatric Medical History: Reports: Hx Depression Comment Only: Hx Bipolar Disorder - borderline personality disorder Past Surgical History: Reports: Hx Appendectomy, Hx Orthopedic Surgery - spinal, Hx Tonsillectomy - Immunizations Hx Diphtheria, Pertussis, Tetanus Vaccination: Yes Physical Exam - Vital signs Vitals: Temp Pulse Resp BP Pulse Ox 98.3 F 97 16 106/68 98 04/30/19 11:47 04/30/19 11:47 04/30/19 11:47 04/30/19 11:47 04/30/19 11:47 Course - Vital Signs Vital signs: Temp Pulse Resp BP Pulse Ox 98.3 F 97 16 106/68 98 04/30/19 11:47 04/30/19 11:47 04/30/19 11:47 04/30/19 11:47 04/30/19 11:47 Doctor's Discharge - Discharge Referrals: MARIUM STEWART PA-C [Primary Care Provider] - Follow up as needed
[2019-04-30 12:48] LABS: APPEARANCE,URINE SLIGHTLY-CLOUDY; BILIRUBIN,URINE NEGATIVE (NEGATIVE); CALCIUM OXALATE CRYSTALS,URINE FEW /HPF; COLOR,URINE YELLOW; GLUCOSE, URINE NEGATIVE (NEGATIVE); KETONES,URINE NEGATIVE (NEGATIVE); LEUKOCYTE ESTERASE,URINE NEGATIVE (NEGATIVE); NITRITE,URINE NEGATIVE (NEGATIVE); PROTEIN,URINE NEGATIVE (NEGATIVE); URINE SPECIFIC GRAVITY 1.023; UROBILINOGEN,URINE NEGATIVE mg/dL (<2.0)
[2019-04-30 13:13] LABS: ABSOLUTE BASOPHILS # (AUTO) 0.1 10^3/uL (0.0-0.2); ABSOLUTE EOSINOPHILS # (AUTO) 0.1 10^3/uL (0.0-0.6); ABSOLUTE LYMPHOCYTES (AUTO) 2.5 10^3/uL (0.5-4.7); ABSOLUTE MONOCYTES (AUTO) 0.5 10^3/uL (0.1-1.4); ABSOLUTE NEUT (AUTO) 5.3 10^3/uL (1.7-8.2); BASOPHILS % (AUTO) 1.2 % (0-2); EOSINOPHILS % (AUTO) 0.8 % (0-6); HEMATOCRIT 39.2 % (36.0-47.0); HEMOGLOBIN 13.3 g/dL (12.0-15.5); LYMPHOCYTES % (AUTO) 29.3 % (13-45); MEAN CORPUSCULAR HEMOGLOBIN 26.8 pg (27.0-33.4); MEAN CORPUSCULAR HGB CONC 33.9 g/dL (32.0-36.0); MEAN CORPUSCULAR VOLUME 79 fl (80-97); MONOCYTES % (AUTO) 6.3 % (3-13); PLATELET COUNT 370 10^3/uL (150-450); RED BLOOD COUNT 4.95 10^6/uL (3.72-5.28); RED CELL DISTRIBUTION WIDTH 14.5 % (11.5-14.0); SEGMENTED NEUTROPHILS % (AUTO) 62.4 % (42-78); TOTAL CELLS COUNTED % (AUTO) 100 %; WHITE BLOOD COUNT 8.5 10^3/uL (4.0-10.5)
[2019-04-30 13:34] LABS: ALBUMIN 5.3 g/dL (3.5-5.0); ALKALINE PHOSPHATASE 61 U/L (38-126); ANION GAP 12 (5-19); ASPARTATE AMINO TRANSFERASE 57 U/L (14-36); BILIRUBIN,DIRECT 0.3 mg/dL (0.0-0.4); BILIRUBIN,TOTAL 0.5 mg/dL (0.2-1.3); BLOOD UREA NITROGEN 13 mg/dL (7-20); CALCIUM 10.2 mg/dL (8.4-10.2); CARBON DIOXIDE 28 mmol/L (22-30); CHLORIDE 100 mmol/L (98-107); GLUCOSE 83 mg/dL (75-110); TOTAL PROTEIN 8.8 g/dL (6.3-8.2)
[2019-04-30] MEDS ORDERED: DEXAMETHASONE SOD PHOS INJ 10 MG/1 ML VIAL IM ONE (15:05)
[2019-04-30] MEDS ORDERED: KETOROLAC TROMETHAMINE 60 MG/2 ML SDV IM ONE (15:05)
[2019-04-30] MEDS ORDERED: ACETAMINOPHEN 325 MG TABLET PO ONE (15:06)
--- NOTE | 2019-04-30 15:14 | ER Document Report ---
Addendum entered and electronically signed by ANTONIO CARVALHO PA-C 04/30/19 16:46: Course - Re-evaluation Re-evalutation: 04/30/19 16:46 CTA negative for hydronephrosis or any perinephric stranding. Overall CT was read as normal. There appeared to be a moderate/large amount of stool in the intestine. No evidence of obstruction. I explained all this to patient and reassured her. She is stable for discharge. - Vital Signs Vital signs: Temp Pulse Resp BP Pulse Ox 98.3 F 97 16 106/68 98 04/30/19 11:47 04/30/19 11:47 04/30/19 11:47 04/30/19 11:47 04/30/19 11:47 - Laboratory Result Diagrams: 04/30/19 12:50 04/30/19 12:50 Laboratory results interpreted by me: 04/30/19 04/30/19 12:50 12:50 MCV 79 L MCH 26.8 L RDW 14.5 H AST 57 H Total Protein 8.8 H Albumin 5.3 H Addendum entered and electronically signed by ANTONIO CARVALHO PA-C 04/30/19 15:53: Course - Re-evaluation Re-evalutation: 04/30/19 15:51 I was approached by the nurse, Leena, who said that the patient was not satisfied with her diagnosis and patient states that "I know when something is wrong with me, this happened to me for 5 years when I had my back surgery". I spoke with her at length of her my clinical judgment and told her I was concerned about exposing her to unnecessary radiation to assess her kidneys. She was tearful and said that she wanted to get a CT to ensure that there is no kidney infection present. I told her that we would possibly see hydronephrosis or perinephric stranding but she had no evidence of infection on lab work so w ould be very unlikely. She was adamant that she wanted to go ahead with the scan. I also presented the option of a renal ultrasound but she stated that she had 1 of those in the past and it was normal. CT abdomen pelvis without contrast will be ordered at the patient's request. - Vital Signs Vital signs: Temp Pulse Resp BP Pulse Ox 98.3 F 97 16 106/68 98 04/30/19 11:47 04/30/19 11:47 04/30/19 11:47 04/30/19 11:47 04/30/19 11:47 - Laboratory Result Diagrams: 04/30/19 12:50 04/30/19 12:50 Laboratory results interpreted by me: 04/30/19 04/30/19 12:50 12:50 MCV 79 L MCH 26.8 L RDW 14.5 H AST 57 H Total Protein 8.8 H Albumin 5.3 H Original Note: ED General - General Chief Complaint: Urinary Problem Stated Complaint: URINARY PROBLEMS Time Seen by Provider: 04/30/19 12:29 Primary Care Provider: MARIUM STEWART PA-C [Primary Care Provider] - Follow up as needed Mode of Arrival: Ambulatory Notes: 23-year-old female with history of chronic pain with a nerve stimulator in place. Patient states that she tried to shut off her nerve stimulator to truly assess her pain and she said it was significant. Presented to the emergency department with dysuria and bilateral flank pain. Patient reports symptoms have been going on for several weeks and she has associated nausea, vomiting and chills. She states that she is currently finishing her third antibiotic. She reports the first 2 antibiotics did not work as her doctor told her that her urine was resistant to them. She is unsure what these antibiotics were but she does know that currently she is taking Cipro. She has been taking Cipro now day . Patient denies fevers but says she does not have a thermometer, has chills, states she had nausea and vomiting this morning, has lower abdominal pain bilateral that radiates down the front of her legs, denies any acute shortness of breath or chest pain, denies any weakness/numbness/paralysis in any of her extremities, denies constipation, no other complaints TRAVEL OUTSIDE OF THE [place] IN LAST 30 DAYS: No - Related Data Allergies/Adverse Reactions: Penicillins Allergy (Verified 04/30/19 11:46) IV Contract Dye Allergy (Uncoded 04/30/19 11:46) Past Medical History - General Information source: Patient - Social History Smoking Status: Never Smoker Frequency of alcohol use: Occasional Drug Abuse: None Family History: Reviewed & Not Pertinent Patient has suicidal ideation: No Patient has homicidal ideation: No Renal/ Medical History: Denies: Hx Peritoneal Dialysis GI Medical History: Reports: Hx Gastroesophageal Reflux Disease Psychiatric Medical History: Reports: Hx Depression Comment Only: Hx Bipolar Disorder - borderline personality disorder Past Surgical History: Reports: Hx Appendectomy, Hx Oral Surgery - wisdom, Hx Orthopedic Surgery - spinal, Hx Tonsillectomy - Immunizations Hx Diphtheria, Pertussis, Tetanus Vaccination: Yes Review of Systems - Review of Systems Constitutional: See HPI EENT: No symptoms reported Cardiovascular: See HPI Respiratory: See HPI Gastrointestinal: See HPI Genitourinary: See HPI Female Genitourinary: No symptoms reported Musculoskeletal: See HPI Skin: No symptoms reported Hematologic/Lymphatic: No symptoms reported Neurological/Psychological: See HPI Physical Exam - Vital signs Vitals: Temp Pulse Resp BP Pulse Ox 98.3 F 97 16 106/68 98 04/30/19 11:47 04/30/19 11:47 04/30/19 11:47 04/30/19 11:47 04/30/19 11:47 - Notes Notes: PHYSICAL EXAMINATION: Reviewed vital signs and charting by RN GENERAL: Alert, interacts well. No acute distress. HEAD: Normocephalic, atraumatic. EYES: Pupils equal and round. Extraocular movements intact. ENT: Oral mucosa moist, tongue midline. NECK: Full range of motion. Trachea midline. LUNGS: Clear to auscultation bilaterally, no wheezes, rales, or rhonchi. No respiratory distress. HEART: Regular rate and rhythm. No murmur ABDOMEN: soft, lower abdominal tenderness to palpation bilateral. No disten tion. Bowel sounds present EXTREMITIES: Moves all 4 extremities spontaneously. No edema, No cyanosis. PSYCH: Normal affect, normal mood. SKIN: Warm, dry, normal turgor. No rashes or lesions noted. Course - Re-evaluation Re-evalutation: 04/30/19 15:14 Patient has a negative urinalysis and lab work all within normal limits, no christopher kocytosis to be concern for an infectious process. After further interview patient does have chronic pain issues and has life stressors so I suspect this is potentially hyperesthesia. Patient denies any abnormal vaginal discharge or any concerning symptoms for PID so pelvic exam was deferred. I do not suspect patient has nephrolithiasis as there is no microscopic hematuria and she does not have CVAT. I do not suspect an acute abdominal pathology like ovarian torsion at this time as patient's pain pattern does not fit this and it is bilateral which would be exceedingly rare. I do not suspect any GI pathology like small bowel obstruction as patient is having bowel movements and has a soft abdomen. Patient was given Toradol 30 mg IM once and dexamethasone 10 mg IM once. I also instructed her it is okay to take an NSAID like ibuprofen or naproxen for 1 to 2-week periods because patient has not been taking them because she was told that "it could cause kidney damage". Patient's overall work-up reassuring, vital signs within normal limits, patient is stable for discharge. - Vital Signs Vital signs: Temp Pulse Resp BP Pulse Ox 98.3 F 97 16 106/68 98 04/30/19 11:47 04/30/19 11:47 04/30/19 11:47 04/30/19 11:47 04/30/19 11:47 - Laboratory Result Diagrams: 04/30/19 12:50 04/30/19 12:50 Laboratory results interpreted by me: 04/30/19 04/30/19 12:50 12:50 MCV 79 L MCH 26.8 L RDW 14.5 H AST 57 H Total Protein 8.8 H Albumin 5.3 H Discharge - Discharge Clinical Impression: Urinary tract infection symptoms Abdominal pain Qualifiers: Abdominal location: lower abdomen, unspecified Qualified Code(s): R10.30 - Lower abdominal pain, unspecified Back pain Qualifiers: Back pain location: low back pain Chronicity: acute Back pain laterality: bilateral Sciatica presence: without sciatica Qualified Code(s): M54.5 - Low back pain Condition: Good Disposition: HOME, SELF-CARE Instructions: Toradol Injection ([facility]) Additional Instructions: You were seen in the emergency department this afternoon for symptoms of urinary tract infection. Also, you were seen for back pain and abdominal pain. I strongly suspect this is a chronic pain issue. Often when people have chronic pain if they get an injury or an illness it can cause acute episodes of worsening pain that are then difficult to get under control. To help try to control his pain you have been given a shot of steroid and a medication called Toradol intramuscularly as well. I strongly recommend that you take ibuprofen 600 mg every 6 hours with food or milk [id number] for the next 2 to 3 days and/or Tylenol 1000 mg every 6 hours for pain as well. Also, you have life stressors at this time which is going to complicate pain management. It is very important to try to control your stress and find things that will help calm you down like meditation or enjoyable activities. If you develop worsening severe intractable abdominal pain, you have bloody vomit or bloody diarrhea, gross blood in your urine, passout, have acute shortness of breath or severe chest pain, or have any other concerning symptoms please immediately return to the emergency department. Referrals: MARIUM STEWART PA-C [Primary Care Provider] - Follow up as needed
--- NOTE | 2019-04-30 16:15 | RADIOLOGY REPORT (SQ) ---
EXAM DESCRIPTION: CT ABD/PELVIS NO ORAL OR IV COMPLETED DATE/TIME: 04/30/2019 4:03 pm REASON FOR STUDY: Bilateral flank pain COMPARISON: None. TECHNIQUE: CT scan of the abdomen and pelvis performed without intravenous or oral contrast. Images reviewed with lung, soft tissue, and bone windows. Reconstructed coronal and sagittal MPR images revi ewed. All images stored on PACS. All CT scanners at this facility use dose modulation, iterative reconstruction, and/or weight based d osing when appropriate to reduce radiation dose to as low as reasonably achievable (ALARA). [facility]: Dose Right [facility]: CareDose [facility]: Dose Right [facility]: Teradose 4D [facility]: [employer] RADIATION DOSE: mGy. LIMITATIONS: None. FINDINGS: LOWER CHEST: No significant findings. No nodules or infiltrates. NON-CONTRASTED LIVER, SPLEEN, ADRENALS: Evaluation limited by lack of IV contrast. No identified sign ificant masses. PANCREAS: No masses. No peripancreatic inflammatory changes. GALLBLADDER: No identified stones by CT criteria. No inflammatory changes to suggest cholecystitis. RIGHT KIDNEY AND URETER: No suspicious masses. Assessment limited by lack of IV contrast. No signif icant calcifications. No hydronephrosis or hydroureter. LEFT KIDNEY AND URETER: No suspicious masses. Assessment limited by lack of IV contrast. No signifi cant calcifications. No hydronephrosis or hydroureter. AORTA AND RETROPERITONEUM: No aneurysm. No retroperitoneal masses or adenopathy. BOWEL AND PERITONEAL CAVITY: No obvious masses or inflammatory changes. No free fluid. APPENDIX: Surgically absent. PELVIS, BLADDER, AND ABDOMINAL WALL:No abnormal masses. No free fluid. Bladder normal. BONES: No significant findings. OTHER: No other significant finding. IMPRESSION: NO SIGNIFICANT OR ACUTE PROCESS IN THE ABDOMEN OR PELVIS. COMMENT: Quality ID # [id number]: Final reports with documentation of one or more dose reduction techniques (e.g., Automated exposure control, adjustment of the mA and/or kV according to patient size, use of iterative reconstruction technique) TECHNICAL DOCUMENTATION: JOB ID: [id number] [employer]- All Rights Reserved Reading location - IP/workstation name: [email or web address]
[2019-04-30 17:11] VITALS: BP 95/53
== END 2019-04-30 17:20 | disposition home or self-care (01) ==
LOC: ER 11:42
DX: R39.198 Other difficulties with micturition (principal); M54.5 Low back pain; R10.30 Lower abdominal pain, unspecified; G89.29 Other chronic pain; R11.2 Nausea with vomiting, unspecified
CPT/HCPCS: 99284; 96372; 36415; 87086; 85025; 80053; 81001; 74176; J1885; J1100

== ENCOUNTER 2019-07-14 18:35 | Emergency (ER) | payer OTHER ==
--- NOTE | 2019-07-14 19:01 | ER Document Report ---
ED Medical Screen (RME) - General Chief Complaint: Abdominal Pain Stated Complaint: ABDOMINAL PAIN, NAUSEA, VOMITING Time Seen by Provider: 07/14/19 18:57 Primary Care Provider: MARIUM STEWART PA-C [Primary Care Provider] - Follow up as needed Mode of Arrival: Ambulatory Information source: Patient Notes: 23-year-old female presented to ED for complaint of upper and lower abdominal pain on and off since February. She thought she had another UTI/kidney infection so she went to the urgent care who sent her to the emergency room. They did a urine which was negative at the urgent care. She states she has had nausea and vomited once today twice yesterday and 4 times a day before. She states her last menstrual cycle was 2 weeks ago. Patient is alert oriented respirations regular and unlabored speaking in full sentences. We will get some blood work and have her examined by 1 of the providers. She has had an appendectomy. She states all food makes her throw up. I have greeted and performed a rapid initial assessment of this patient. A comprehensive ED assessment and evaluation of the patient, analysis of test results and completion of medical decision making process will be conducted by an additional ED providers. TRAVEL OUTSIDE OF THE [place] IN LAST 30 DAYS: No - Related Data Allergies/Adverse Reactions: Penicillins Allergy (Verified 07/14/19 18:48) IV Contract Dye Allergy (Uncoded 07/14/19 18:48) Past Medical History Renal/ Medical History: Denies: Hx Peritoneal Dialysis GI Medical History: Reports: Hx Gastroesophageal Reflux Disease Psychiatric Medical History: Reports: Hx Depression Comment Only: Hx Bipolar Disorder - borderline personality disorder Past Surgical History: Reports: Hx Appendectomy, Hx Oral Surgery - wisdom, Hx Orthopedic Surgery - spinal, Hx Tonsillectomy - Immunizations Hx Diphtheria, Pertussis, Tetanus Vaccination: Yes Physical Exam - Vital signs Vitals: Temp Pulse Resp BP Pulse Ox 98.3 F 93 16 117/72 100 07/14/19 18:39 07/14/19 18:39 07/14/19 18:39 07/14/19 18:39 07/14/19 18:39 Course - Vital Signs Vital signs: Temp Pulse Resp BP Pulse Ox 98.3 F 93 16 117/72 100 07/14/19 18:39 07/14/19 18:39 07/14/19 18:39 07/14/19 18:39 07/14/19 18:39 Doctor's Discharge - Discharge Referrals: MARIUM STEWART PA-C [Primary Care Provider] - Follow up as needed
[2019-07-14 19:48] LABS: ABSOLUTE BASOPHILS # (AUTO) 0.1 10^3/uL (0.0-0.2); ABSOLUTE EOSINOPHILS # (AUTO) 0.1 10^3/uL (0.0-0.6); ABSOLUTE LYMPHOCYTES (AUTO) 2.2 10^3/uL (0.5-4.7); ABSOLUTE MONOCYTES (AUTO) 0.6 10^3/uL (0.1-1.4); ABSOLUTE NEUT (AUTO) 6.6 10^3/uL (1.7-8.2); BASOPHILS % (AUTO) 0.6 % (0-2); EOSINOPHILS % (AUTO) 0.7 % (0-6); HEMATOCRIT 38.9 % (36.0-47.0); HEMOGLOBIN 12.6 g/dL (12.0-15.5); LYMPHOCYTES % (AUTO) 23.1 % (13-45); MEAN CORPUSCULAR HEMOGLOBIN 24.8 pg (27.0-33.4); MEAN CORPUSCULAR HGB CONC 32.5 g/dL (32.0-36.0); MEAN CORPUSCULAR VOLUME 76 fl (80-97); PLATELET COUNT 392 10^3/uL (150-450); RED BLOOD COUNT 5.09 10^6/uL (3.72-5.28); RED CELL DISTRIBUTION WIDTH 15.6 % (11.5-14.0); SEGMENTED NEUTROPHILS % (AUTO) 69.6 % (42-78); TOTAL CELLS COUNTED % (AUTO) 100 %; WHITE BLOOD COUNT 9.5 10^3/uL (4.0-10.5)
--- NOTE | 2019-07-14 19:56 | RADIOLOGY REPORT (SQ) ---
EXAM DESCRIPTION: U/S ABDOMEN LIMITED W/O DOP COMPLETED DATE/TIME: 07/14/2019 7:48 pm REASON FOR STUDY: generalized abd pain worse ruq COMPARISON: 04/16/2018. TECHNIQUE: Dynamic and static grayscale images acquired of the abdomen and recorded on PACS. Lizzetteo lou selected color Doppler and spectral images recorded. LIMITATIONS: None. FINDINGS: PANCREAS: No masses. Visualized pancreatic duct normal caliber. LIVER: No masses. Echotexture normal. LIVER VASCULATURE: Normal directional flow of the main portal vein and hepatic veins. GALLBLADDER: No stones. Normal wall thickness. No pericholecystic fluid. ULTRASOUND-DETECTED LI'S SIGN: Negative. INTRAHEPATIC DUCTS AND COMMON DUCT: CBD and intrahepatic ducts normal caliber. No filling defects. INFERIOR VENA CAVA: Normal flow. AORTA: No aneurysm. RIGHT KIDNEY: Normal size. Normal echogenicity. No solid or suspicious masses. No hydronephrosis. No calcifications. PERITONEAL AND RIGHT PLEURAL SPACE: No ascites or effusions. OTHER: No other significant findings. IMPRESSION: NORMAL RIGHT UPPER QUADRANT ULTRASOUND. TECHNICAL DOCUMENTATION: JOB ID: [id number] [employer]- All Rights Reserved Reading location - IP/workstation name: [email or web address]
[2019-07-14 20:07] LABS: ALBUMIN 4.8 g/dL (3.5-5.0); ALKALINE PHOSPHATASE 70 U/L (38-126); ANION GAP 11 (5-19); ASPARTATE AMINO TRANSFERASE 34 U/L (14-36); BILIRUBIN,DIRECT 0.1 mg/dL (0.0-0.4); BILIRUBIN,TOTAL 0.5 mg/dL (0.2-1.3); BLOOD UREA NITROGEN 17 mg/dL (7-20); CALCIUM 9.9 mg/dL (8.4-10.2); CARBON DIOXIDE 24 mmol/L (22-30); CHLORIDE 105 mmol/L (98-107); GLUCOSE 98 mg/dL (75-110); TOTAL PROTEIN 7.8 g/dL (6.3-8.2)
--- NOTE | 2019-07-14 21:35 | ER Document Report ---
ED General - General Chief Complaint: Abdominal Pain Stated Complaint: ABDOMINAL PAIN, NAUSEA, VOMITING Time Seen by Provider: 07/14/19 18:57 Primary Care Provider: MARIUM STEWART PA-C [Primary Care Provider] - Follow up as needed Mode of Arrival: Ambulatory TRAVEL OUTSIDE OF THE [place] IN LAST 30 DAYS: No - HPI Notes: Patient is a 23-year-old female with a history of mental health disorders, chronic back pain with spinal cord stimulatory in place, and appendectomy who presents complaining of acute on chronic abdominal cramping with nausea vomiting of the past 4 days. Patient states that she has had chronic issues with mid right abdominal pain for "a while" and has seen GI and had scopes performed in the past without answers. Patient states that she has had intermittent dysuria and issues with UTIs since this past February. She has not had any vomiting since this morning. She did have a bowel movement today, but states that she has been constipated over the past week. No other vaginal discharge, odor, or bleeding. She has no concern of STD or STI does not want any testing. Denies any headache, fever, neck pain, URI, sore throat, chest pain, palpitations, syncope, cough, shortness of breath, wheeze, dyspnea, diarrhea, urinary retention, dysuria, hematuria, new onset back pain, or rash. - Related Data Allergies/Adverse Reactions: Penicillins Allergy (Verified 07/14/19 18:48) IV Contract Dye Allergy (Uncoded 07/14/19 18:48) Home Medications: lexapro. buspar. wellbutrin. omeprazole. mirapex. lamictal. control pill Past Medical History - General Information source: Patient - Social History Smoking Status: Current Some Day Smoker Chew tobacco use (# tins/day): No Frequency of alcohol use: Social Drug Abuse: None Family History: Reviewed & Not Pertinent Patient has suicidal ideation: No Patient has homicidal ideation: No Renal/ Medical History: Denies: Hx Peritoneal Dialysis GI Medical History: Reports: Hx Gastroesophageal Reflux Disease Psychiatric Medical History: Reports: Hx Depression Comment Only: Hx Bipolar Disorder - borderline personality disorder Past Surgical History: Reports: Hx Appendectomy, Hx Oral Surgery - wisdom, Hx Orthopedic Surgery - spinal, Hx Tonsillectomy - Immunizations Hx Diphtheria, Pertussis, Tetanus Vaccination: Yes Review of Systems - Review of Systems -: Yes All other systems reviewed and negative Physical Exam - Vital signs Vitals: Temp Pulse Resp BP Pulse Ox 98.3 F 93 16 117/72 100 07/14/19 18:39 07/14/19 18:39 07/14/19 18:39 07/14/19 18:39 07/14/19 18:39 - Notes Notes: PHYSICAL EXAMINATION: GENERAL: Well-appearing, well-nourished and in no acute distress. HEAD: Atraumatic, normocephalic. EYES: Pupils equal round and reactive to light, extraocular movements intact, sclera anicteric, conjunctiva are normal. ENT: Nares patent and without discharge. oropharynx clear without exudates. No tonsilar hypertrophy or erythema. Moist mucous membranes. NECK: Normal range of motion, supple without lymphadenopathy LUNGS: Breath sounds clear to auscultation bilaterally and equal. No wheezes rales or rhonchi. HEART: Regular rate and rhythm without murmurs, rubs, gallops. ABDOMEN: Soft, nontender, nondistended abdomen. No guarding, no rebound. No masses appreciated. Normal bowel sounds present. No CVA tenderness bilaterally. Marinelli neg. No lower pelvic tenderness. Extremities: No cyanosis, clubbing, or edema b/l. Peripheral pulses 2+. Capillary refill less than 3 seconds. NEUROLOGICAL: Cranial nerves grossly intact. Normal speech, normal gait. PSYCH: Normal mood, normal affect. SKIN: Warm, Dry, normal turgor, no rashes or lesions noted. Course - Re-evaluation Re-evalutation: 07/14/19 22:47 Patient is an afebrile, well-hydrated, 23-year-old female who presents with nausea vomiting, since resolved. Vitals are acceptable without significant tachycardia, tachypnea, or hypoxia. PE is otherwise unremarkable. Patient's abdomen is soft nontender throughout. Patient is nontoxic-appearing and is able to tolerate p.o. without difficulty. Labs and imaging unremarkable aside from appearance of constipation on x-ray. Patient has had GI work-ups in the past for these issues w/o any answers. Pt would not allow for pelvic exam, but at this time she does not have any pelvic concerns or lower abd tenderness so we will defer. Low suspicion/risk for acute appendicitis, bowel obstruction, acute cholecystitis, acute cholangitis, perforated diverticulitis, incarcerated hernia, pancreatitis, perforated ulcer, peritonitis, sepsis, pelvic inflammatory disease, ectopic , tubo-ovarian abscess, ovarian torsion, or other systemic emergent condition at this time. Patient is aware that her condition can change from initial presentation and she needs to monitor symptoms closely and seek medical attention if any acute changes. Conservative measures otherwise for symptoms. Recheck with your PCM in 2-3 days. Schedule consult with a garnett feeder. Return to the ED with any worsening/concerning symptoms otherwise as reviewed in discharge. Patient is in agreement. - Vital Signs Vital signs: Temp Pulse Resp BP Pulse Ox 98.3 F 93 16 117/72 100 07/14/19 18:39 07/14/19 18:39 07/14/19 18:39 07/14/19 18:39 07/14/19 18:39 - Laboratory Result Diagrams: 07/14/19 19:21 07/14/19 19:21 Laboratory results interpreted by me: 07/14/19 19:21 MCV 76 L MCH 24.8 L RDW 15.6 H Discharge - Discharge Clinical Impression: Nonspecific abdominal pain Constipation Qualifiers: Constipation type: unspecified constipation type Qualified Code(s): K59.00 - Constipation, unspecified Condition: Stable Disposition: HOME, SELF-CARE Instructions: Abdominal Pain ([facility]), Constipation ([facility]) Additional Instructions: Maintain adequate fluid and food intake Gulf diet ([employer] Bananas, rice, apples, toast, etc Zofran as needed tylenol if needed Monitor for any worsening symptoms Make sure you are staying hydrated enough to urinate and have normal BM's Recheck with your PCM in 2-3 days Consider consult with Gastroenterology for ongoing/worsening symptoms Return to the ED with any worsening symptoms and/or development of fever, headache, chest pain, palpitations, syncope, shortness of breath, trouble breathing, abdominal pain, n/v/d, blood in stool/urine, weakness, or other worsening symptoms that are concerning to you. Prescriptions: Magnesium Citrate [Citrate of Magnesia 296 ml Bottle] 296 ml PO ONCE PRN #1 bottle PRN Reason: Ondansetron [Zofran Odt 4 mg Tablet] 1 - 2 tab PO Q4H PRN #15 tab.rapdis PRN Reason: For Nausea/Vomiting Referrals: MARIUM STEWART PA-C [Primary Care Provider] - Follow up as needed RACHAEL NAVARRO MD [ACTIVE STAFF] - Follow up as needed TANIA LAMBERT MD [ACTIVE STAFF] - Follow up as needed
--- NOTE | 2019-07-14 22:00 | RADIOLOGY REPORT (SQ) ---
EXAM DESCRIPTION: XR ABDOMEN 1 VIEW (KUB) COMPLETED DATE/TME: 07/14/2019 21:08 CLINICAL HISTORY: abd pain, ?constipation COMPARISON: None. FINDINGS: Single supine view of the abdomen was submitted. There is no evidence of bowel obstruction. There is no abnormal calcification within the abdomen. There is no acute osseous process visualized. Pacer with leads extending towards the thoracic spine noted, the tip of the leads were not visualized in this exam. IMPRESSION: No acute abnormalities.
[2019-07-14 22:38] LABS: APPEARANCE,URINE CLEAR; BILIRUBIN,URINE NEGATIVE (NEGATIVE); COLOR,URINE YELLOW; GLUCOSE, URINE NEGATIVE (NEGATIVE); KETONES,URINE NEGATIVE (NEGATIVE); PROTEIN,URINE NEGATIVE (NEGATIVE); URINE SPECIFIC GRAVITY 1.023; UROBILINOGEN,URINE NEGATIVE mg/dL (<2.0)
[2019-07-14] MEDS ORDERED: KETOROLAC TROMETHAMINE 60 MG/2 ML SDV IM ONE (22:59)
[2019-07-14 23:03] VITALS: BP 101/58
== END 2019-07-14 23:03 | disposition home or self-care (01) ==
LOC: ER 18:35
DX: R10.9 Unspecified abdominal pain (principal); R11.2 Nausea with vomiting, unspecified; K59.00 Constipation, unspecified; G89.29 Other chronic pain; M54.9 Dorsalgia, unspecified; F17.200 Nicotine dependence, unspecified, uncomplicated; Z88.0 Allergy status to penicillin; Z91.041 Radiographic dye allergy status
CPT/HCPCS: 99284; 96372; 36415; 83690; 84703; 85025; 81025; 80053; 81001; 74018; 76705; J1885

== ENCOUNTER 2019-08-05 21:36 | Emergency (ER) | payer OTHER ==
--- NOTE | 2019-08-05 22:04 | ER Document Report ---
ED Medical Screen (RME) - General Chief Complaint: Possible Overdose Stated Complaint: POSSIBLE OVERDOSE Time Seen by Provider: 08/05/19 21:46 Primary Care Provider: MARIUM STEWART PA-C [Primary Care Provider] - Follow up as needed Notes: Ms. Brizuela is a 23 yo female with PMH of bipolar personality disorder, anx iety, depression, PTSD brought in by EMS for overdose. Patient states that the overdose was a suicidal intent. She states that she cheated on her several days ago and had extreme guilt so she told him tonight. She endorses taking a medium sized handful of 20 mg tablets of Lexapro as well as a large handful approximately 40 tablets of naproxen 500 mg at 7 PM[address] In route with EMS, she was significantly nauseated so she was given 4 mg of Zofran. Charcoal was not administered as it was several hours ago. Patient also received a total of 250ml of NS. Patient endorses feeling extremely sad. She does state that this was a suicidal gesture. She denies any other complaints other than nausea at this point in time such as chest pain, abdominal pain, vomiting or diarrhea. She denies any recent illness, cough, headache or shortness of breath. TRAVEL OUTSIDE OF THE [place] IN LAST 30 DAYS: No - Related Data Allergies/Adverse Reactions: Penicillins Allergy (Verified 07/23/19 15:33) IV Contract Dye Allergy (Uncoded 07/23/19 15:33) Past Medical History - Social History Family history: Reviewed & Not Pertinent Renal/ Medical History: Denies: Hx Peritoneal Dialysis GI Medical History: Reports: Hx Gastroesophageal Reflux Disease Psychiatric Medical History: Reports: Hx Depression Comment Only: Hx Bipolar Disorder - borderline personality disorder Past Surgical History: Reports: Hx Appendectomy, Hx Oral Surgery - wisdom, Hx Orthopedic Surgery - spinal, Hx Tonsillectomy - Immunizations Hx Diphtheria, Pertussis, Tetanus Vaccination: Yes Review of Systems - Review of Systems Constitutional: See HPI EENT: No symptoms reported Cardiovascular: No symptoms reported Respiratory: No symptoms reported Gastrointestinal: See HPI Genitourinary: No symptoms reported Female Genitourinary: No symptoms reported Musculoskeletal: No symptoms reported Skin: No symptoms reported Hematologic/Lymphatic: No symptoms reported Neurological/Psychological: No symptoms reported Physical Exam - Vital signs Vitals: Pulse Ox 97 08/05/19 22:00 Interpretation: Normal - General General appearance: Appears well, Alert - HEENT Head: Normocephalic, Atraumatic Eyes: Normal Pupils: PERRL - Respiratory Respiratory status: No respiratory distress Chest status: Nontender Breath sounds: Normal Chest palpation: Normal - Cardiovascular Rhythm: Regular Heart sounds: Normal auscultation Murmur: No - Abdominal Inspection: Normal Distension: No distension Bowel sounds: Normal Tenderness: Nontender Organomegaly: No organomegaly - Back Back: Normal, Nontender - Extremities General upper extremity: Normal inspection, Nontender, Normal color, Normal ROM, Normal temperature General lower extremity: Normal inspection, Nontender, Normal color, Normal ROM, Normal temperature, Normal weight bearing. No: Tamara's sign - Neurological Neuro grossly intact: Yes Cognition: Normal Orientation: AAOx4 Amira Coma Scale Eye Opening: Spontaneous [place] Coma Scale Verbal: Oriented [place] Coma Scale Motor: Obeys Commands Amira Coma Scale Total: 15 Speech: Normal Motor strength normal: LUE, RUE, LLE, RLE Sensory: Normal - Psychological Associated symptoms: Depressed, Flat affect - Skin Skin Temperature: Warm Skin Moisture: Dry Skin Color: Normal Course - Re-evaluation Re-evalutation: Patient is generally well-appearing and nontoxic. Initial vitals within normal limits. Differential diagnosis includes electrolyte abnormality, respiratory depression, altered mentation, SOPHIA, hydration, overdose, suicidal gesture 08/05/19 22:04 BC shows mild leukocytosis of 12.2 without significant left shift. MCV is decreased at 76 however no evidence of anemia. CMP shows elevation in bili at 1.6 however the remainder is within normal limits. Urine tox is otherwise negative. Salicylates and Tylenol are also negative. Patient has remained asymptomatic throughout her stay in the ED. Poison Control Center recommended a repeat Tylenol level 3 to 4 hours after arrival. This was done and is also unremarkable. 08/06/19 06:52 And held pending psychiatric evaluation given her significant ingestion. - Vital Signs Vital signs: Temp Pulse Resp BP Pulse Ox 97.6 F 18 115/75 98 08/06/19 04:00 08/06/19 04:00 08/06/19 04:00 08/06/19 04:00 - Laboratory Result Diagrams: 08/05/19 21:50 08/05/19 21:50 Laboratory results interpreted by me: 08/05/19 08/05/19 08/06/19 21:50 21:50 01:45 WBC 12.2 H MCV 76 L MCH 24.9 L RDW 16.2 H Absolute Neuts (auto) 8.4 H Total Bilirubin 1.6 H Direct Bilirubin 1.6 H Salicylates 1.0 L Acetaminophen < 10 L < 10 L Doctor's Discharge - Discharge Clinical Impression: Naproxen overdose, Suicidal behavior Condition: Good Disposition: PSYCH HOSP/UNIT Referrals: MARIUM STEWART PA-C [Primary Care Provider] - Follow up as needed
[2019-08-05 22:05] LABS: ABSOLUTE BASOPHILS # (AUTO) 0.1 10^3/uL (0.0-0.2); ABSOLUTE EOSINOPHILS # (AUTO) 0.1 10^3/uL (0.0-0.6); ABSOLUTE LYMPHOCYTES (AUTO) 2.9 10^3/uL (0.5-4.7); ABSOLUTE MONOCYTES (AUTO) 0.7 10^3/uL (0.1-1.4); ABSOLUTE NEUT (AUTO) 8.4 10^3/uL (1.7-8.2); EOSINOPHILS % (AUTO) 0.7 % (0-6); HEMATOCRIT 37.7 % (36.0-47.0); HEMOGLOBIN 12.4 g/dL (12.0-15.5); LYMPHOCYTES % (AUTO) 23.7 % (13-45); MEAN CORPUSCULAR HEMOGLOBIN 24.9 pg (27.0-33.4); MEAN CORPUSCULAR HGB CONC 32.8 g/dL (32.0-36.0); MEAN CORPUSCULAR VOLUME 76 fl (80-97); MONOCYTES % (AUTO) 5.6 % (3-13); PLATELET COUNT 413 10^3/uL (150-450); RED BLOOD COUNT 4.96 10^6/uL (3.72-5.28); RED CELL DISTRIBUTION WIDTH 16.2 % (11.5-14.0); TOTAL CELLS COUNTED % (AUTO) 100 %; WHITE BLOOD COUNT 12.2 10^3/uL (4.0-10.5)
[2019-08-05 22:07] LABS: AMORPHOUS SEDIMENT,URINE TRACE /HPF; APPEARANCE,URINE CLOUDY; BILIRUBIN,URINE NEGATIVE (NEGATIVE); COLOR,URINE YELLOW; GLUCOSE, URINE NEGATIVE (NEGATIVE); KETONES,URINE NEGATIVE (NEGATIVE); LEUKOCYTE ESTERASE,URINE NEGATIVE (NEGATIVE); NITRITE,URINE NEGATIVE (NEGATIVE); PROTEIN,URINE NEGATIVE (NEGATIVE); URIC ACID CRYSTALS,URINE MODERATE /HPF; URINE SPECIFIC GRAVITY 1.014; UROBILINOGEN,URINE NEGATIVE mg/dL (<2.0)
[2019-08-05 22:15] LABS: URINE AMPHETAMINES SCREEN NEGATIVE; URINE BARBITURATES SCREEN NEGATIVE; URINE BENZODIAZEPINES SCREEN NEGATIVE; URINE COCAINE SCREEN NEGATIVE; URINE MARIJUANA (THC) SCREEN NEGATIVE; URINE METHADONE SCREEN NEGATIVE; URINE PHENCYCLIDINE SCREEN NEGATIVE
[2019-08-05 22:16] LABS: ALBUMIN 4.2 g/dL (3.5-5.0); ALKALINE PHOSPHATASE 83 U/L (38-126); ANION GAP 16 (5-19); ASPARTATE AMINO TRANSFERASE 30 U/L (14-36); BILIRUBIN,DIRECT 1.6 mg/dL (0.0-0.4); BILIRUBIN,TOTAL 1.6 mg/dL (0.2-1.3); BLOOD UREA NITROGEN 12 mg/dL (7-20); CALCIUM 9.5 mg/dL (8.4-10.2); CARBON DIOXIDE 22 mmol/L (22-30); CHLORIDE 105 mmol/L (98-107); GLUCOSE 99 mg/dL (75-110); POTASSIUM 3.7 mmol/L (3.6-5.0); TOTAL PROTEIN 7.2 g/dL (6.3-8.2)
[2019-08-05 22:20] LABS: ACETAMINOPHEN < 10 ug/mL (10-30); ALCOHOL < 10 mg/dL (NONE DETECTED)
[2019-08-05] MEDS ORDERED: NORMAL SALINE 1000 ML 1,000 ML IV ONE (23:04)
[2019-08-05] MEDS ORDERED: ONDANSETRON HCL INJ/PF 4 MG/2 ML SDV IV ONE (23:05)
--- NOTE | 2019-08-06 00:07 | EKG REPORT ---
SEVERITY:- OTHERWISE NORMAL ECG - SINUS RHYTHM BORDERLINE RIGHT AXIS DEVIATION : Confirmed by: Meg De La O MD 06-Aug-2019 00:07:14
--- NOTE | 2019-08-06 10:39 | ER Document Report ---
Doctor's Note Notes: 08/06/19 10:31 Afebrile vital stable no distress. Past medical history of bipolar personality disorder, anxiety, depression, PTSD was brought by EMS for overdose yesterday at approximately 9 PM to the emergency room. Patient states that she took a handful of 20mg Lexapro tablets and approximately 40 tablets of naproxen 500 mg at 7 PM yesterday. Patient was evaluated in the emergency room, and mental health did evaluate patient. Patient denies any suicidal ideation or homicidal ideation. Patient at this point denies any fevers, chills, chest pain,palpitations, shortness of breath, dyspnea, nausea, vomiting, diarrhea, abdominal pain, hematuria,blurred vision, double vision, loss of vision, speech changes, LH, dizziness, syncope, headaches, wheezing, ST, URI, neck pain, weakness, bowel or bladder dysfunction, saddle anesthesia, numbness or tingling in bilateral upper or lower extremities equally, muscle paralysis, weakness in bilateral upper or lower extremities equally or rash. Mental health has been at bedside to evaluate patient, please see their note for further evaluation and mental health status. Laboratory findings reviewed as well as all diagnostic imaging. States 08/06/19 10:39 General: A&Ox3. Answers questions appropriately. Heart: RRR Lungs: CTAB Psych: Flat affect A/P: Continue monitoring and rec's per MH. Normal diet is considering discharge
--- NOTE | 2019-08-06 14:14 | ER Document Report ---
Doctor's Note Notes: 08/06/19 14:13 Vital signs as recorded. Labs as recorded. Patient is denying any and all suicidal ideations at this time. She states she has borderline personality disorder in her attempt was a call for help. She currently denies any suicidal ideations. The behavioral health team is seen and assessed the patient I do not believe that the patient feels IVC criteria at this time. Patient has talked to her fios line installer as well as her friend. She feels very comfortable going home. We will call her friend to make sure that the patient has someone to stay with her. Cathy Ellis is the patient psychologist and will follow the patient as an outpatient.
[2019-08-06 16:04] VITALS: BP 107/67
== END 2019-08-06 16:15 | disposition home or self-care (01) ==
LOC: ER 21:36
DX: T39.312A Poisoning by propionic acid derivatives, intentional self-harm, initial encounter (principal); R11.0 Nausea
CPT/HCPCS: 93005; 36415; 80307 ×4; 83735; 84703; 85025; 80053; 81001; 93010; J2405; J7030; 96361; 96374; 99285

== ENCOUNTER 2020-01-31 05:34 | Emergency (ER) | payer OTHER ==
--- NOTE | 2020-01-31 06:14 | ER Document Report ---
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 Patient has 4-day history of paroxysmal nausea and vomiting diarrhea and diffuse abdominal pain. No other family member has any sickness. She has not been around any children with norovirus. She has been smoking marijuana. Patient denies any prior history of vomiting and diarrhea with her marijuana use. She denies any . Her last menstrual period was over 1 year ago. Patient was witnessed by nursing staff to have vomiting and dry heaves proximately every 5 minutes patient denies any history of trauma or abuse or any illegal drugs. Patient denies any cephalgia but feels chills and myalgias. TRAVEL OUTSIDE OF THE [place] IN LAST 30 DAYS: No - Related Data Allergies/Adverse Reactions: Penicillins Allergy (Verified 08/06/19 13:05) IV Contract Dye Allergy (Uncoded 08/06/19 13:05) Past Medical History - General Information source: Patient - This woman says that she was coughing but actually has paroxysmal vomiting and diarrhea - Social History Smoking Status: Current Every Day Smoker Cigarette use (# per day): Yes Chew tobacco use (# tins/day): No Smoking Education Provided: Yes Frequency of alcohol use: Occasional Drug Abuse: Marijuana Family History: Reviewed & Not Pertinent Patient has suicidal ideation: No Patient has homicidal ideation: No Renal/ Medical History: Denies: Hx Peritoneal Dialysis GI Medical History: Reports: Hx Gastroesophageal Reflux Disease Psychiatric Medical History: Reports: Hx Depression Comment Only: Hx Bipolar Disorder - borderline personality disorder Past Surgical History: Reports: Hx Appendectomy, Hx Oral Surgery - wisdom, Hx Orthopedic Surgery - spinal, Hx Tonsillectomy - Immunizations Hx Diphtheria, Pertussis, Tetanus Vaccination: Yes Review of Systems - Review of Systems Constitutional: See HPI, Malaise, Weakness, Recent illness EENT: See HPI, Other - dry mouth Cardiovascular: No symptoms reported Respiratory: No symptoms reported Gastrointestinal: See HPI, Abdominal pain, Diarrhea, Nausea, Vomiting Genitourinary: No symptoms reported Female Genitourinary: No symptoms reported Musculoskeletal: See HPI, Muscle pain Skin: No symptoms reported Hematologic/Lymphatic: No symptoms reported Neurological/Psychological: See HPI, Weakness Physical Exam - Vital signs Vitals: Temp Pulse Resp BP Pulse Ox 98.8 F 92 18 115/69 98 01/31/20 06:46 01/31/20 06:46 01/31/20 06:46 01/31/20 06:46 01/31/20 06:46 Interpretation: Normal - General General appearance: Alert - HEENT Head: Normocephalic, Atraumatic Eyes: Normal Pupils: PERRL Nasal: Normal Mouth/Lips: Normal Mucous membranes: Dry Pharynx: Normal Neck: Normal - Respiratory Respiratory status: No respiratory distress Chest status: Nontender Breath sounds: Normal Chest palpation: Normal - Cardiovascular Rhythm: Regular Heart sounds: Normal auscultation Murmur: No - Abdominal Inspection: Normal Distension: No distension Bowel sounds: Hypoactive Tenderness: Tender Organomegaly: No organomegaly - Genitourinary Speculum exam: Other - deferred - Back Back: Normal - Extremities General upper extremity: Normal inspection General lower extremity: Normal inspection - Neurological Neuro grossly intact: Yes Cognition: Normal Orientation: AAOx4 [place]ira Coma Scale Eye Opening: Spontaneous [place] Coma Scale Verbal: Oriented [place] Coma Scale Motor: Obeys Commands [place] Coma Scale Total: 15 Speech: Normal Motor strength normal: LUE, RUE, LLE, RLE Sensory: Normal - Psychological Associated symptoms: Normal affect - Skin Skin Temperature: Warm Skin Moisture: Dry Course - Vital Signs Vital signs: Temp Pulse Resp BP Pulse Ox 98.8 F 92 18 115/69 98 01/31/20 06:46 01/31/20 06:46 01/31/20 06:46 01/31/20 06:46 01/31/20 06:46 - Laboratory Result Diagrams: 01/31/20 06:28 01/31/20 06:28 Laboratory results interpreted by me: 01/31/20 01/31/20 01/31/20 06:28 06:28 07:51 WBC 16.2 H RBC 5.68 H MCV 69 L MCH 22.9 L RDW 18.1 H Lymph % (Auto) 8.6 L Absolute Neuts (auto) 13.8 H Seg Neutrophils % 84.9 H Glucose 132 H ALT 38 H Urine Protein 30 H Urine Ketones 20 H Urine Blood SMALL H - Diagnostic Test Radiology reviewed: Reports reviewed Radiology results interpreted by me: 01/31/20 08:59 4.5 ovarian cyst L Critical Care Note - Critical Care Note Total time excluding time spent on procedures (mins): 90 Discharge - Discharge Clinical Impression: Gastroenteritis, Marijuana smoker, Dehydration Ovarian cyst Qualifiers: Laterality: left Qualified Code(s): N83.202 - Unspecified ovarian cyst, left side Clinical Impression: (Ruled Out): Gastroenteritis due to norovirus Condition: Fair Disposition: HOME, SELF-CARE Additional Instructions: Follow-up with personal doctor this week return to ER as needed take medicines as directed encourage fluids and advance to brat diet bananas rice applesauce toast as tolerated then over 1 to 2 days advance to regular diet. Avoid marijuana if possible and also follow-up with [facility] about ovarian cyst on your left abdomen. Prescriptions: Promethazine HCl/Codeine [Prometh-Codein 6.25-10 mg/5 ml] 5 ml PO TID PRN #150 ml PRN Reason: nausea Promethazine HCl/Codeine [Prometh-Codein 6.25-10 mg/5 ml] 5 ml PO TID PRN #150 ml PRN Reason: nausea Forms: Return to Work Referrals: MARIUM STEWART PA-C [Primary Care Provider] - Follow up as needed
[2020-01-31 06:50] VITALS: BP 115/69
[2020-01-31] MEDS ORDERED: PROCHLORPERAZINE EDISYLATE INJ 10 MG/2 ML VIAL IV ONE (06:53)
[2020-01-31] MEDS ORDERED: HYDROMORPHONE HCL INJ/PF 2 MG/ML AMPULE IV ONE (06:53)
[2020-01-31] MEDS: NORMAL SALINE 1000 ML 1,000 ML IV PRN ×2 (07:05→08:25)
[2020-01-31 07:17] LABS: ABSOLUTE BASOPHILS # (AUTO) 0.1 10^3/uL (0.0-0.2); ABSOLUTE LYMPHOCYTES (AUTO) 1.4 10^3/uL (0.5-4.7); ABSOLUTE NEUT (AUTO) 13.8 10^3/uL (1.7-8.2); BASOPHILS % (AUTO) 0.3 % (0-2); EOSINOPHILS % (AUTO) 0.1 % (0-6); HEMATOCRIT 39.1 % (36.0-47.0); LYMPHOCYTES % (AUTO) 8.6 % (13-45); MEAN CORPUSCULAR HEMOGLOBIN 22.9 pg (27.0-33.4); MEAN CORPUSCULAR HGB CONC 33.2 g/dL (32.0-36.0); MEAN CORPUSCULAR VOLUME 69 fl (80-97); MONOCYTES % (AUTO) 6.1 % (3-13); PLATELET COUNT 393 10^3/uL (150-450); RED BLOOD COUNT 5.68 10^6/uL (3.72-5.28); RED CELL DISTRIBUTION WIDTH 18.1 % (11.5-14.0); SEGMENTED NEUTROPHILS % (AUTO) 84.9 % (42-78); TOTAL CELLS COUNTED % (AUTO) 100 %; WHITE BLOOD COUNT 16.2 10^3/uL (4.0-10.5)
[2020-01-31 07:31] LABS: ALBUMIN 4.9 g/dL (3.5-5.0); ALKALINE PHOSPHATASE 87 U/L (38-126); ANION GAP 13 (5-19); ASPARTATE AMINO TRANSFERASE 28 U/L (14-36); BILIRUBIN,TOTAL 0.5 mg/dL (0.2-1.3); BLOOD UREA NITROGEN 13 mg/dL (7-20); CALCIUM 9.7 mg/dL (8.4-10.2); CARBON DIOXIDE 22 mmol/L (22-30); CHLORIDE 102 mmol/L (98-107); GLUCOSE 132 mg/dL (75-110); POTASSIUM 3.7 mmol/L (3.6-5.0)
[2020-01-31 08:10] LABS: APPEARANCE,URINE CLEAR; BILIRUBIN,URINE NEGATIVE (NEGATIVE); COLOR,URINE YELLOW; GLUCOSE, URINE NEGATIVE (NEGATIVE); KETONES,URINE 20 mg/dL (NEGATIVE); LEUKOCYTE ESTERASE,URINE NEGATIVE (NEGATIVE); NITRITE,URINE NEGATIVE (NEGATIVE); PROTEIN,URINE 30 mg/dL (NEGATIVE); URINE SPECIFIC GRAVITY 1.025; UROBILINOGEN,URINE NEGATIVE mg/dL (<2.0)
[2020-01-31 08:20] LABS: URINE AMPHETAMINES SCREEN NEGATIVE; URINE BARBITURATES SCREEN NEGATIVE; URINE BENZODIAZEPINES SCREEN NEGATIVE; URINE COCAINE SCREEN NEGATIVE; URINE METHADONE SCREEN NEGATIVE; URINE PHENCYCLIDINE SCREEN NEGATIVE
[2020-01-31 08:24] LABS: URINE MARIJUANA (THC) SCREEN UNCONFIRMED POSITIVE
--- NOTE | 2020-01-31 08:29 | RADIOLOGY REPORT (SQ) ---
EXAM DESCRIPTION: CT ABD/PELVIS NO ORAL OR IV IMAGES COMPLETED DATE/TIME: 01/31/2020 8:05 am REASON FOR STUDY: n/v/d COMPARISON: 04/30/2019 TECHNIQUE: CT scan of the abdomen and pelvis performed without intravenous or oral contrast. Images reviewed with lung, soft tissue, and bone windows. Reconstructed coronal and sagittal MPR images revi ewed. All images stored on PACS. All CT scanners at this facility use dose modulation, iterative reconstruction, and/or weight based d osing when appropriate to reduce radiation dose to as low as reasonably achievable (ALARA). [facility]: Dose Right [facility]: CareDose [facility]: Dose Right [facility]: Teradose 4D [facility]: Smart [employer] RADIATION DOSE: CT Rad equipment meets quality standard of care and radiation dose reduction techniq ues were employed. CTDIvol: 10.3 mGy. DLP: 565 mGy-cm.mGy. LIMITATIONS: None. FINDINGS: LOWER CHEST: No significant findings. No nodules or infiltrates. NON-CONTRASTED LIVER, SPLEEN, ADRENALS: Evaluation limited by lack of IV contrast. No identified sign ificant masses. PANCREAS: No masses. No peripancreatic inflammatory changes. GALLBLADDER: No identified stones by CT criteria. No inflammatory changes to suggest cholecystitis. RIGHT KIDNEY AND URETER: No suspicious masses. Assessment limited by lack of IV contrast. No signif icant calcifications. No hydronephrosis or hydroureter. LEFT KIDNEY AND URETER: No suspicious masses. Assessment limited by lack of IV contrast. No signifi cant calcifications. No hydronephrosis or hydroureter. AORTA AND RETROPERITONEUM: No aneurysm. No retroperitoneal masses or adenopathy. BOWEL AND PERITONEAL CAVITY: No obvious masses or inflammatory changes. No free fluid. APPENDIX: Surgically absent. PELVIS, BLADDER, AND ABDOMINAL WALL:There is an umbilical hernia containing omental fat only. No kenyon e fluid. There is a 4.5 cm left adnexal lesion most likely ovarian cyst. BONES: No significant findings. OTHER: No other significant finding. IMPRESSION: 4.5 cm left adnexal lesion most consistent with ovarian cyst. No other significant find ings. Prior appendectomy. COMMENT: Quality ID # [id number]: Final reports with documentation of one or more dose reduction techniques (e.g., Automated exposure control, adjustment of the mA and/or kV according to patient size, use of iterative reconstruction technique) TECHNICAL DOCUMENTATION: JOB ID: [id number] 2010 [employer]- All Rights Reserved Reading location - IP/workstation name: [email or web address]
== END 2020-01-31 09:40 | disposition home or self-care (01) ==
LOC: ER 05:34
DX: K52.9 Noninfective gastroenteritis and colitis, unspecified (principal); N83.202 Unspecified ovarian cyst, left side; E86.0 Dehydration; R53.81 Other malaise; R53.1 Weakness; F17.210 Nicotine dependence, cigarettes, uncomplicated; Z88.0 Allergy status to penicillin
CPT/HCPCS: 99285; 96361; 96374; 96375; 36415; 84702; 83690; 85025; 80053; 81001; 84484; 80307; 74176; J1170; J0780; J7030